=== PATIENT | female | born 1995 | race Caucasian/White ===

== ENCOUNTER 2021-04-22 13:22 | Emergency (ER) | payer OTHER, SELFPAY ==
[2021-04-22 15:00] VITALS: BP 148/83; PULSE 94; RESP 18; TEMP 36.4; O2SAT 98; BMI 46.1
--- NOTE | 2021-04-22 15:49 | ED_ITS ---
HPI - Skin/Abscess/Foreign Bdy General Chief complaint: Skin/Abscess/Foreign Body Stated complaint: pain under left breast Time Seen by Provider: 04/22/21 15:38 Source: patient Mode of arrival: ambulatory Limitations: no limitations History of Present Illness complaint: abscess/boil Onset (ago): day(s) (Two days) Location: chest (Left breast) Severity: severe Severity scale (1-10): >10 Quality: aching and constant Pain Consistency: constant Relieving factors: none Exacerbating factors: palpation Context: none Associated symptoms: denies other symptoms Treatments prior to arrival: attempted to drain pus at home Related Data Previous Rx's Medication Instructions Recorded cephalexin 500 mg capsule 500 mg PO Q6H 10 Days #40 cap 04/22/21 doxycycline monohydrate 100 mg 100 mg PO BID 10 Days #20 cap 04/22/21 capsule ibuprofen 800 mg tablet 800 mg PO Q8H PRN #14 tab 04/22/21 oxycodone-acetaminophen 5 mg-325 1 tab PO Q6H PRN #10 tab 04/22/21 mg tablet (Percocet) Allergies Allergy/AdvReac Type Severity Reaction Status Date / Time azithromycin [From ZITHROMAX] Allergy Intermediate EYE Unverified 05/20/20 16:33 SWELLING Review of Systems Review of Systems: Constitutional : No Fever, No Chills, Cardiovascular : No Chest Pain, No SOB Respiratory : No Dyspnea Gastrointestinal : No abdominal pain Musculoskeletal : No Joint Swelling Skin : positive skin abscess with mild surrounding erythema, no laceration, No Foreign bodies, No rash Neuro : No Weakness, No Numbness/tingling Psych : No SI/HI/thoughts of self injury Yes all other systems are reviewed and are negative [facility] Past Medical History Attestation statement: The following information was validated with the patient. Social History Social History Advance Directives: Yes Advance Directives Information Provided: Yes Advance Directives on File: No Patient : No Physical Exam Vital Signs: Vital Signs: Last Vital Signs Temp 97.6 F 04/22/21 15:00 Pulse 94 04/22/21 15:00 Resp 18 04/22/21 15:00 BP 148/83 H 04/22/21 15:00 Pulse Ox 98 04/22/21 15:00 Body Mass Index 46.1 vital signs have been reviewed as normal and appeared to be correct. Blood pressure normal. Heart rate normal. Respiration rate normal. Temperature normal. Oxygen saturation normal. Appearance: Alert. Oriented X3. No acute distress. Head: Normal external exam. Normocephalic. Atraumatic. Eyes: PERRLA. EOMI. Conjunctiva and sclera normal. Eyelids normal. ENT: Pharynx normal. Uvula midline. Moist mucous membranes. Neck: Normal inspection. Neck supple. FROM. No adenopathy. No meningeal signs. CVS: Normal heart rate and rhythm. Heart sound normal. Pulses normal throughout. No murmurs/rales/gallops. Respiratory: No respiratory distress. Painless inspiration. Breath sounds normal. No wheezes/rales/rhonchi noted. Chest nontender. No accessory muscle usage noted or decreased air movement noted. Back: Full range of motion noted. No rashes/lesion/induration/fluctuance or signs of infection noted. Skin: To left breast at the 07:00 o'clock aspect patient has an abscess that is already draining with moderate purulent discharge and mild surrounding erythema. No induration noted. The rest of the Skin is warm and dry. Normal skin color. Normal skin turgor. No additional rashes/lesions/lacerations noted. Extremities: Extremities exhibit normal range of motion. Extremities nontender. Neuro: Oriented X 3. No motor deficit. No sensory deficit. Reflexes normal. Normal steady gait. No focal neuro deficits noted. Course Course Course Narrative: 26-year-old female presenting to the ED with complaints of an abscess to her left breast for the past 2 days worse today with surrounding erythema. On exam patient's abscess is already draining with moderate purulent drainage. Therefore I continue to apply pressure to take all the purulent drainage and I irrigated it. No further purulent drainage is noted. Dressing placed. Patient will be discharged with antibiotics and symptomatic treatment along with instructions return if any new or worsening symptoms to follow up with primary care provider. Patient understands agrees with this plan. MDM - Skin/Abscess/Foreign Bdy Medical Records Attestation: I reviewed the patient's medical records. Procedures Abscess I/D Site: chest (Breast) Side (if applicable): left Technique: other (Manual pressure due to already draining) Amount of fluid expressed (mL): 5 Sent for culture/gram staining?: No Irrigation: Yes Packing used?: none Complications: other (No complications patient tolerated procedure well) Discharge Plan Discharge Clinical Impression: Cellulitis, Abscess of skin or subcutaneous tissue Patient Disposition: Home, Self-Care Instructions: Cellulitis (ED), Abscess (ED), Abscess Incision and Drainage (DC) Prescriptions: New cephalexin 500 mg capsule 500 mg PO Q6H 10 Days Qty: 40 RF: 0 ibuprofen 800 mg tablet 800 mg PO Q8H PRN (Reason: pain) Qty: 14 RF: 0 oxycodone-acetaminophen [Percocet] 5-325 mg tablet 1 tab PO Q6H PRN (Reason: pain) Qty: 10 RF: 0 doxycycline monohydrate 100 mg capsule 100 mg PO BID 10 Days Qty: 20 RF: 0 Referrals: Elham Tidwell MD [Primary Care Provider] - 2 days Stand Alone Forms: Work/School Release Print Language: [place] Leonean
[2021-04-22] MEDS: Ibuprofen 800 MG TABLET PO (15:57)
[2021-04-22] MEDS: cephALEXin 500 MG CAPSULE PO (15:57)
[2021-04-22] MEDS: oxyCODONE HCl Immed Release 5 MG TABLET PO (15:58)
== END 2021-04-22 16:05 | disposition home or self-care (01) ==
PROVIDERS: Emergency Provider Internal Medicine; PCP Internal Medicine
DX: L02.213 Cutaneous abscess of chest wall (principal); L03.313 Cellulitis of chest wall
CPT/HCPCS: 99283; 99284

== ENCOUNTER 2021-06-09 12:47 | Emergency (ER) | payer OTHER, SELFPAY ==
--- NOTE | ~2021-06-09 | XR_ITS ---
EXAMINATION: XR ANKLE, LEFT CLINICAL INFORMATION: Tender posterior ankle. COMPARISON: None TECHNIQUE: AP, lateral, and mortise views of the left ankle. FINDINGS: The bones and soft tissues are normal. No fracture. Alignment is anatomic. Joint spaces are maintained. No joint effusion. XR/XR ankle LT 2V IMPRESSION: Unremarkable left ankle exam.
[2021-06-09 14:39] VITALS: BP 142/85; PULSE 74; RESP 18; TEMP 36.3; O2SAT 100; BMI 44.6
--- NOTE | 2021-06-09 15:15 | ED_ITS ---
HPI - General Adult General Chief complaint: Extremity Injury, Lower Stated complaint: l foot pain no known inj Time Seen by Provider: 06/09/21 15:14 Source: patient Mode of arrival: ambulatory Limitations: no limitations History of Present Illness HPI narrative: Two days ago patient will cup with left Achillis tendon pain. She reports no injury. She reports that the area is painful to touch. No numbness no tingling. Having hard time standing up. Patient works as a ice cream server all day. Onset (ago): day(s) Location: lower extremity (Left leg Achillis tendon) Radiation: non-radiation Severity: moderate Quality: aching Pain Consistency: intermittent Relieving factors: immobilization Exacerbating factors: movement Related Data Previous Rx's Medication Instructions Recorded cephalexin 500 mg capsule 500 mg PO Q6H 10 Days #40 cap 04/22/21 doxycycline monohydrate 100 mg 100 mg PO BID 10 Days #20 cap 04/22/21 capsule ibuprofen 800 mg tablet 800 mg PO Q8H PRN #14 tab 04/22/21 oxycodone-acetaminophen 5 mg-325 1 tab PO Q6H PRN #10 tab 04/22/21 mg tablet (Percocet) cyclobenzaprine 10 mg tablet 10 mg PO BID PRN #10 tab 06/09/21 ibuprofen 600 mg tablet 600 mg PO Q8H PRN #20 tab 06/09/21 prednisone 20 mg tablet 60 mg PO DAILY 5 Days #15 tab 06/09/21 Allergies Allergy/AdvReac Type Severity Reaction Status Date / Time azithromycin [From ZITHROMAX] Allergy Intermediate EYE Verified 06/09/21 14:39 SWELLING Review of Systems Review of Systems: Constitutional : No Weight loss, No Fever, No Chills, No Night Sweats, No Fatigue, No Malaise ENT/Mouth : No Hearing loss, No Ear Pain, No Nasal Congestion, No Sinus Pain, No Hoarseness, No sore throat, No Rhinorrhea, No Swallowing Difficulty Eyes: No Eye Pain, No Swelling, No Redness, No Foreign Body, No Discharge, No Vision Changes Cardiovascular : No Chest Pain, No SOB, No Dyspnea on Exertion, No Orthopnea, No Edema, No Palpitations Respiratory : No Cough, No Sputum, No Wheezing, No Smoke Exposure, No Dyspnea Gastrointestinal : No Nausea, No Vomiting, No Diarrhea, No Constipation, No abdominal Pain, No Hematochezia, No Melena Genitourinary : no irregular bleeding, No Dysuria, No Urinary Frequency, No Hematuria, No Urinary Incontinence, No Urgency, No Flank Pain, No Urinary Flow Changes, No Hesitancy Musculoskeletal : No joint pain, No Myalgias, No Joint Swelling Skin : No Skin Lesions, No rash Neuro : No Weakness, No Numbness, No Paresthesias, No Loss of Consciousness, No Dizziness, No Headache Yes all other systems are reviewed and are negative PMFSH Past Medical History Medical History (Updated 06/09/21 @ 15:43 by Selin Hinds, [facility]) Asthma Hypoglycemia Tendinitis Social History Social History Advance Directives: No Advance Directives Information Provided: No Patient : No Physical Exam Vital Signs: Vital Signs: Last Vital Signs Temp 97.3 F 06/09/21 14:39 Pulse 74 06/09/21 14:39 Resp 18 06/09/21 14:39 BP 142/85 H 06/09/21 14:39 Pulse Ox 100 06/09/21 14:39 Body Mass Index 44.6 Const: General: healthy appearing, no acute distress and well developed Nutritional Appearance: well nourished Orientation/consciousness: patient oriented x3 Neck: Neck: Yes normal visual inspection, Yes full ROM and Yes trachea midline Thyroid: Thyroid normal Resp: Auscultation: clear to auscultation bilaterally Cardio: Rate: regular rate Rhythm: regular rhythm GI: Inspection: Yes normal to inspection and No distended Palpation (GI): No hepatosplenomegaly present Auscultation: normal bowel sounds Skin: General skin exam: elasticity normal, turgor normal and dry skin Neuro: General: patient oriented x3 Extrem: Other: Left lower extremity Achillis tendon tenderness. Felix test negative for Achilles tendon rupture Medical Decision Making MDM Narrative Medical decision making narrative: Patient woke up couple days ago with left Achillis tendon pain. Denies any injuries. Patient works as a ice cream server all day. Patient reports that she had Achillis tendon tendinitis when she was in high school when she played soccer. Felix test performed, negative for Achilles tendon rupture. Upper portion of Achillis tendon tendinitis. Will treat with prednisone and muscle relaxer Imaging Data Ankle x-ray: Attestation: I personally reviewed and interpreted this imaging study as follows: Radiologist's impression: FINDINGS: The bones and soft tissues are normal. No fracture. Alignment is anatomic. Joint spaces are maintained. No joint effusion.? Discharge Plan Discharge Clinical Impression: Achilles tendinitis Qualifiers: Laterality: left Qualified Code(s): M76.62 - Achilles tendinitis, left leg Patient Disposition: Home, Self-Care Instructions: Achilles Tendinitis (ED) Additional Instructions: You were seen here today for you left Achillis tendon pain. We performed a test and your Achillis tendon is not ruptured, however you might have head injury that resulted in inflammation. Please make sure that use where your boot that we provided to it. Make sure that you finish all of your prednisone. You can also take muscle relaxer to help with pain Prescriptions: New cyclobenzaprine 10 mg tablet 10 mg PO BID PRN (Reason: muscle spasm) Qty: 10 RF: 0 prednisone 20 mg tablet 60 mg PO DAILY 5 Days Qty: 15 RF: 0 ibuprofen 600 mg tablet 600 mg PO Q8H PRN (Reason: pain) Qty: 20 RF: 0 No Action cephalexin 500 mg capsule 500 mg PO Q6H 10 Days Qty: 40 RF: 0 ibuprofen 800 mg tablet 800 mg PO Q8H PRN (Reason: pain) Qty: 14 RF: 0 oxycodone-acetaminophen [Percocet] 5-325 mg tablet 1 tab PO Q6H PRN (Reason: pain) Qty: 10 RF: 0 doxycycline monohydrate 100 mg capsule 100 mg PO BID 10 Days Qty: 20 RF: 0 Referrals: Joshua Engle MD [Physician] - 2 days (Left foot Achillis tendon tendinitis) Elham Tidwell MD [Primary Care Provider] - 2 days Stand Alone Forms: Work/School Release Interventions: ED Discharge Assessment Last Done: 06/09/21 16:25 Discharge Date/Time: 06/09/21 16:25
[2021-06-09] MEDS: predniSONE 20 MG TABLET 60 MG PO (15:59)
[2021-06-09] MEDS: Cyclobenzaprine HCl 10 MG TABLET PO (15:59)
== END 2021-06-09 16:25 | disposition home or self-care (01) ==
PROVIDERS: Emergency Provider Emergency Medicine; PCP Internal Medicine
DX: M76.62 Achilles tendinitis, left leg (principal)
CPT/HCPCS: 73600; 99283; 99284

== ENCOUNTER 2021-11-07 14:09 | Emergency (ER) | payer SELFPAY ==
[2021-11-07 14:12] VITALS: BP 150/89; PULSE 100; RESP 19; TEMP 36.6; O2SAT 99; BMI 48.0
--- NOTE | 2021-11-07 15:10 | ED_ITS ---
HPI - Back Pain/Injury General Chief Complaint: Back Pain/Injury Stated Complaint: Back pain Time Seen by Provider: 11/07/21 14:56 Source: patient Mode of arrival: ambulatory Limitations: no limitations History of Present Illness HPI Narrative: Patient is a 26-year-old female past history significant for tendinitis and sciatica. She states that she went bowling prior to arrival to the emergency department. She was bending forward and swinging the bowling ball between her legs, and upon standing straight up she experienced sharp pain diffusely across her lower back. The pain is non radiating, is made worse with movement, improved some with rest. She did not take any medication prior to arrival. Denies any bowel or bladder dysfunction, numbness or tingling of the legs, or impaired sensation. She denies any preceding symptoms over the past few days including fevers, chills, nausea, vomiting, abdominal pain, pelvic pain, dysuria, urinary frequency/urgency/hesitancy/abnormal vaginal bleeding, abnormal vaginal discharge. She denies possibility of . Denies any recent surgical procedures, any known immune compromising conditions, personal history of cancer, or IV drug usage. Declines urinalysis or testing at this time. Related Data Previous Rx's Medication Instructions Recorded cephalexin 500 mg capsule 500 mg PO Q6H 10 Days #40 cap 04/22/21 doxycycline monohydrate 100 mg 100 mg PO BID 10 Days #20 cap 04/22/21 capsule ibuprofen 800 mg tablet 800 mg PO Q8H PRN #14 tab 04/22/21 oxycodone-acetaminophen 5 mg-325 1 tab PO Q6H PRN #10 tab 04/22/21 mg tablet (Percocet) cyclobenzaprine 10 mg tablet 10 mg PO BID PRN #10 tab 06/09/21 ibuprofen 600 mg tablet 600 mg PO Q8H PRN #20 tab 06/09/21 prednisone 20 mg tablet 60 mg PO DAILY 5 Days #15 tab 06/09/21 naproxen 500 mg tablet 500 mg PO BID PRN #14 tab 11/07/21 Allergies Allergy/AdvReac Type Severity Reaction Status Date / Time azithromycin [From ZITHROMAX] Allergy Intermediate EYE Verified 06/09/21 14:39 SWELLING Review of Systems Review of Systems: Constitutional : No Weight loss, No Fever, No Chills, ENT/Mouth : No Hearing loss, No Ear Pain, No Nasal Congestion, No Sinus Pain, No Hoarseness, No sore throat, No Rhinorrhea, No Swallowing Difficulty Cardiovascular : No Chest Pain, No SOB Respiratory : No Cough, No Dyspnea Gastrointestinal : No Nausea, No Vomiting, No Diarrhea, No abdominal Pain, No Hematochezia, No Melena Genitourinary : No Dysuria, No Urinary Frequency, No Hematuria, No Urinary Incontinence Musculoskeletal : positive back pain Skin : No Skin Lesions, No rash Neuro : No Weakness, No Numbness, No Paresthesias, no loss of bowel or bladder incontinence, no saddle anesthesia Yes all other systems are reviewed and are negative [facility] Past Medical History Attestation statement: The following information was validated with the patient. Source: old records reviewed Medical History Asthma Bipolar 1 disorder Depression Hypoglycemia PTSD (post-traumatic stress disorder) Tendinitis Social History Social History Advance Directives: No Advance Directives Information Provided: No Patient : No Physical Exam Vital Signs: Vital Signs: Last Vital Signs Temp 98 F 11/07/21 14:12 Pulse 100 11/07/21 14:12 Resp 19 11/07/21 14:12 BP 150/89 H 11/07/21 14:12 Pulse Ox 99 11/07/21 14:12 BMI result Body Mass Index 48.0 Vital signs have been reviewed as normal and appeared to be correct. Blood pressure slightly elevated 150/89. Heart rate normal.? Respiration rate normal. Temperature normal.? Oxygen saturation normal. Appearance: Alert.?Oriented to person, place and time. No acute distress.?Normal affect. Eyes: Pupils equal, round and reactive to light.? ENT: Pharynx normal.?? Neck: Normal inspection.? Neck supple.?? CVS: Heart sounds normal. Normal heart rate and rhythm.? Pulses normal.?? Respiratory: No respiratory distress.? Lung sounds clear to auscultation bilaterally?? Abdomen: Soft and non-tender. Normoactive bowel sounds. No pulsatile mass.?? Skin: Skin warm and dry.? Normal skin color.? Normal skin turgor.?? Extremities: No lower extremity edema.? No calf ttp? Back: Tenderness with palpation of the bilateral paraspinal muscles. Neuro: Moves all extremities spontaneously. Sensation intact bilaterally. CN II- XII intact. No focal neuro deficits. Ambulates with slow steady gait. Course Course Course Narrative: Patient is a 26-year-old female being evaluated for acute lumbar pain. She has a history of sciatica for which she reports muscle relaxers have never helped, she is not interested in taking muscle relaxers. Pain is most consistent with muscular pain, although cannot completely exclude herniated disc. On neurological exam there are no deficits. Not consistent with spinal fracture, spinal infection, epidural abscess, AAA, epidural abscess, or dissection. No high risk past medical history including incontinence, fever, immunosuppression, recent surgery or lumbar puncture, coagulopathy, significant trauma, recent unintentional weight loss, pulsatile mass, history of cancer, history of TB, history of IV drug use that would warrant MRI or CT. Not consistent with ectopic , pyelonephritis, urinary tract infection, renal calculi, pelvic infection, appendicitis, diverticulitis. On exam no concern for cauda equina syndrome. No imaging is currently indicated at this time. Plan for discharge home with naproxen, and follow-up with primary care provider, discussed reasons to return to the emergency department, and patient agreed with plan. Discharge Plan Discharge Clinical Impression: Strain of lumbar region Patient Disposition: Home, Self-Care Instructions: Acute Low Back Pain (ED), Lower Back Exercises (ED) Additional Instructions: Please be sure to rest over the next couple of days, you can apply ice packs or heating pad to your lower back. You can use Tylenol [id number] as needed, you had been given a prescription for naproxen which can be used twice daily, do not take ibuprofen, Aleve, aspirin or any additional [id number] anti- inflammatories with this medication. Please engage in lower back exercises. Please contact your primary care provider and schedule a follow-up appointment within 5 days. You can return to the emergency department for any new or worsening symptoms or concerns Prescriptions: New naproxen 500 mg tablet 500 mg PO BID PRN (Reason: pain) Qty: 14 0RF No Action cephalexin 500 mg capsule 500 mg PO Q6H 10 Days Qty: 40 0RF ibuprofen 800 mg tablet 800 mg PO Q8H PRN (Reason: pain) Qty: 14 0RF oxycodone-acetaminophen [Percocet] 5-325 mg tablet 1 tab PO Q6H PRN (Reason: pain) Qty: 10 0RF doxycycline monohydrate 100 mg capsule 100 mg PO BID 10 Days Qty: 20 0RF cyclobenzaprine 10 mg tablet 10 mg PO BID PRN (Reason: muscle spasm) Qty: 10 0RF prednisone 20 mg tablet 60 mg PO DAILY 5 Days Qty: 15 0RF ibuprofen 600 mg tablet 600 mg PO Q8H PRN (Reason: pain) Qty: 20 0RF Stand Alone Forms: Work/School Release Interventions: ED Discharge Assessment Last Done: 11/07/21 15:20 Discharge Date/Time: 11/07/21 15:22
== END 2021-11-07 15:22 | disposition home or self-care (01) ==
PROVIDERS: Emergency Provider Emergency Medicine; PCP Internal Medicine
DX: S39.012A Strain of muscle, fascia and tendon of lower back, initial encounter (principal); X50.1XXA Overexertion from prolonged static or awkward postures, initial encounter; Y93.54 Activity, bowling; Y92.39 Other specified sports and athletic area as the place of occurrence of the external cause; Y99.9 Unspecified external cause status
CPT/HCPCS: 99283

== ENCOUNTER → 2023-11-01 09:37 | Outpatient (BNV) | payer OTHER, SELFPAY ==
--- NOTE | 2023-11-01 09:37 | MHC.OFFVIS ---
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 she has no known injury - regular activity of student. carrying backpack, typing etc. it hurts to move and to push on it. she wants a wrap or something supportive.so she can be in class and typing as needed. feels that she has a lot of chronic pain and all people do is complain or focus on her weight. she feels that;s not always very helpful. she had shoulder pain and was given muscle relaxants but cant take them during the day. she was told to get massages but cant afford....thumb pain is mild/moderate will likely resolve in time, given peter wrap and wrapped the wrist etc - suggested that she might need wrist support if doing a lot of typing. support and teaching [facility] Medical History Bipolar 1 disorder PTSD (post-traumatic stress disorder) Depression Tendinitis Hypoglycemia Asthma Social History Advance Directives: No Advance Directives Information Provided: No Patient : No Review of Systems Const Details: Counseling visit: All systems reviewed & are unremarkable except as noted in HPI and below Reports as per HPI Resp Reports as per HPI GI Reports as per HPI Musc Reports as per HPI Neuro Reports as per HPI Psych Reports as per HPI Physical Exam Const General: cooperative, healthy appearing and no acute distress Nutritional Appearance: well nourished Orientation/consciousness: oriented to person Limitations: no limitations HEENT Other: wnl Eyes Other: wnl Chest Other: easy breathing Resp Effort & Inspection: able to speak in complete sentences Skin Other: normal in appearance Neuro General: oriented to person Extrem Other: left thumb - appearance is normal, no brusing redness etc. movement is full and normal but causes her minor distress. movement pain w. resistance laterally not pulling in, minor pain to palp -peter wrapped Psych Other: see HPI Mental Status: mental status grossly normal Speech and movement: Clear speech present Attitude: cooperative Thought process: Normal thought process present Assessment & Plan Assessment & Plan (1) Left thumb sprain: Code(s): S63.602A - Unspecified sprain of left thumb, initial encounter Plan: peter wrap and teaching done, and support given. suggested getting a pcp active again. states health insurance active - i just called to check on this and she has no insurance.... Coding Level of Care Code New Pt Level 2 (40022) Diagnoses Left thumb sprain S63.602A
== END ==
PROVIDERS: PCP Internal Medicine; Visit Provider Nurse Practitioner Family
DX: S63.602A Unspecified sprain of left thumb, initial encounter (principal)
CPT/HCPCS: 99202

== ENCOUNTER 2023-11-28 21:12 | Emergency (ER) | payer OTHER, SELFPAY ==
--- NOTE | ~2023-11-28 | US_ITS ---
EXAMINATION: US ABDOMEN LIMITED CLINICAL INFORMATION: Abnormal appearance of the liver and right kidney on CT scan obtained earlier the same day. COMPARISON: CT scan of the abdomen and pelvis obtained earlier the same day. TECHNIQUE: Real-time imaging of the liver and right kidney, as per specific request of the referring provider. FINDINGS: PANCREAS: Normal. LIVER: The echogenic diffusely. Measures 22.5 cm in sagittal dimension. The liver contour appears unremarkable. No focal hepatic lesion appreciated. No intrahepatic biliary duct dilatation is seen. GALLBLADDER: Status post cholecystectomy. COMMON BILE DUCT: Not evaluated. RIGHT KIDNEY: Lobular contour of the upper pole of the right kidney. No hydronephrosis. No renal calculi or focal parenchymal lesion identified. The kidney measures 12.1 cm in maximum dimension. FREE FLUID: None. US/US abdomen limited IMPRESSION: Lobular contour of the upper pole the right kidney, possibly representing scarring related to old pyelonephritis and/or old infarct. Mild hepatomegaly. Fatty infiltration of the liver. Status post cholecystectomy.
--- NOTE | ~2023-11-28 | CT_ITS ---
EXAMINATION: CT ABDOMEN AND PELVIS WITHOUT CONTRAST CLINICAL INFORMATION: 28-year-old female with abdominal pain, nausea, midline incisional hernia COMPARISON: 04/07/2019 TECHNIQUE: Multidetector volumetric imaging was performed from the superior aspect of the liver through the pubic symphysis. Sagittal and coronal reformatted images were obtained on the technologist's workstation. This CT examination was performed using dose optimization techniques as appropriate, variously including the following: *Automated exposure control *Adjustment of mA and/or kV according to patient size (this includes techniques or standardized protocols for targeted exams where dose is matched to indication/reason for exam; i.e. extremities or head) *Use of iterative reconstruction technique DLP: 991 mGy-cm FINDINGS: LUNG BASES: The visualized lung bases are unremarkable. LIVER, GALLBLADDER, AND BILIARY TREE: Liver is of very low attenuation due to hepatic steatosis, enlarged, the right lobe measured approximately 23 cm.. Gallbladder is surgically absent. PANCREAS: Unremarkable. SPLEEN: Unremarkable. ADRENAL GLANDS: Unremarkable. KIDNEYS AND URETERS: Left kidney is normal in size, shape, and attenuation. Right kidney revealed irregularity of the upper pole limited for evaluation due to noncontrast technique, possibly scarring. No hydronephrosis, hydroureter, or calculi seen. No perinephric stranding. BLADDER: Unremarkable. GASTROINTESTINAL TRACT: The small and large bowel are unremarkable. The appendix is not seen. ABDOMINAL WALL: No significant hernia is appreciated. LYMPH NODES: Normal. VASCULAR: Unremarkable. PELVIC VISCERA: Unremarkable. OSSEOUS STRUCTURES: Unremarkable. CT/CT abdomen pelvis wo IV con IMPRESSION: Hepatomegaly and hepatic steatosis. Irregularity of the upper pole of right kidney, correlate with renal ultrasound Fleischner guidelines were followed.
[2023-11-28 21:34] VITALS: BP 158/89; PULSE 91; RESP 16; TEMP 36.8; O2SAT 98; BMI 45.8
[2023-11-28 22:07] LABS: Appearance Urine Cloudy; Color Urine Yellow; Glucose Urine UA 250 mg/dL (Negative); Leukocyte Esterase Urine Small (1+) (Negative); Nitrite Urine Negative (Negative); PH 5.5 (5.0-9.0); Specific Gravity - Urine >= 1.030 (1.005-1.025); UMIC TRIGGER UACC YES; Urine Blood Negative (Negative); Urine Ketones Trace mg/dL (Negative); Urine Protein 30 (1+) mg/dL (Neg-Trace)
[2023-11-28 22:10] LABS: UPreg QC Valid YES; Urine Pregnancy NEGATIVE (NEGATIVE)
[2023-11-28 22:23] LABS: Bacteria Urine 4+ (None Seen); Hyaline Casts Urine 0-2 /LPF (0-2); RBC Urine 0-2 /HPF (0-2); UACC Culture Trigger YES; WBC Urine >50 /HPF (0-5)
--- NOTE | 2023-11-28 23:57 | PC.NURSE ---
pt not in waiting room for reeval. registration states she has been in and out.
[2023-11-29 00:04] VITALS: BP 155/100; PULSE 89; RESP 16; TEMP 36.9; O2SAT 100
[2023-11-29 07:10] LABS: MANUAL DIFF FLAG NO
[2023-11-29 07:11] LABS: Basophils Absolute Auto 0.1 X10*3/uL (0.0-0.2); Basophils Percent Auto 0.4 % (0-2); Eosinophils Absolute Auto 0.4 X10*3/uL (0.0-0.4); Eosinophils Percent Auto 3.2 % (0-4); Hematocrit 36.9 % (37.0-47.0); Hemoglobin 12.3 g/dl (12.0-16.0); Imm Gran Abs Auto 0.05 X10*3/uL (0.00-0.03); Imm Gran Pct Auto 0.4 % (0.0-0.4); Lymphocytes Absolute Auto 4.3 X10*3/uL (1.2-4.9); Lymphocytes Percent Auto 35.4 % (20-40); Mean Corpuscular HGB Conc 33.3 g/dl (31.0-35.0); Mean Corpuscular Hemoglobin 29.8 pg (27.0-33.0); Mean Corpuscular Volume 89.3 fL (80.0-98.0); Mean Platelet Volume 9.5 fL (9.4-12.3); Monocytes Absolute Auto 0.6 X10*3/uL (0.1-1.2); Monocytes Percent Auto 4.9 % (2-11); Neutrophils Absolute Auto 6.7 x10*3/uL (2.0-8.3); Neutrophils Percent Auto 55.7 % (45-73); Platelet Count 298 X10*3/uL (160-400); Red Blood Count 4.13 X10*6/uL (4.20-5.50); Red Cell Distribution Width 14.6 % (11.0-16.0)
[2023-11-29 07:30] LABS: Alanine Aminotransferase 31 U/L (0-31); Albumin Level 3.9 g/dL (3.5-5.0); Alkaline Phosphatase 85 U/L (39-117); Anion Gap 12 (12-20); Aspartate Amino Transferase 19 U/L (5-31); Bilirubin Total 0.3 mg/dL (0.0-1.0); Blood Urea Nitrogen 15 mg/dL (9-16); Calcium 9.5 mg/dL (8.4-10.2); Carbon Dioxide 26 mmol/L (22-29); Chloride 103 mmol/L (96-108); Estimated Glomerular Filt Rate > 60; Glucose Random 252 mg/dL (60-115); Sodium 137 mmol/L (135-145); Total Protein 7.5 g/dL (6.5-8.0)
--- NOTE | 2023-11-29 07:40 | ED.ABDPAIN ---
HPI - Abdominal Pain General Chief Complaint: Abdominal Pain Stated Complaint: possible abd hernias Time Seen by Provider: 11/29/23 07:32 Source: patient Mode of arrival: ambulatory Limitations: no limitations History of Present Illness HPI narrative: 28-year-old female came in for evaluation of abdominal pain. Abdominal pain for few days that is more severe now, mostly in mid abdomen above the umbilical, patient been having abdominal bulging when she tried to set up was told by her PCP it is hernia now it is more predominant especially when she tries to sit up, the abdominal pain is associated with nausea but no vomiting, patient reports normal bowel movements with no blood or black stool, no vomiting, no fever. Patient declined dysuria, frequency urination, or blood in the urine. Sexually active with 1 partner no vaginal bleed or vaginal discharge patient also declined any risk for STDs. Past surgical history significant for laparoscopic cholecystectomy. Related Data Previous Rx's Medication Instructions Recorded cephalexin 500 mg capsule 500 mg PO Q6H 10 days #40 caps 04/22/21 doxycycline monohydrate 100 mg 100 mg PO BID 10 days #20 caps 04/22/21 capsule ibuprofen 800 mg tablet 800 mg PO Q8H PRN pain #14 tabs 04/22/21 oxycodone-acetaminophen 5 mg-325 1 tab PO Q6H PRN pain #10 tabs 04/22/21 mg tablet (Percocet) cyclobenzaprine 10 mg tablet 10 mg PO BID PRN muscle spasm #10 06/09/21 tabs ibuprofen 600 mg tablet 600 mg PO Q8H PRN pain #20 tabs 06/09/21 prednisone 20 mg tablet 60 mg (3 x 20 mg) PO DAILY 5 days 06/09/21 #15 tabs naproxen 500 mg tablet 500 mg PO BID PRN pain #14 tabs 11/07/21 cefuroxime axetil 500 mg tablet 500 mg PO BID 7 days #14 tabs 11/29/23 Allergies Allergy/AdvReac Type Severity Reaction Status Date / Time azithromycin [From ZITHROMAX] Allergy Intermediate EYE Verified 06/09/21 14:39 SWELLING Review of Systems Review of Systems All other systems are reviewed and are negative Constitutional: Reports as per HPI and Reports no additional constitutional complaints Eyes: Reports as per HPI and Reports no additional eye complaints Reports system reviewed and no additional complaints, except as documented Cardiovascular: Reports as per HPI and Reports no additional cardiovascular complaints Respiratory: Reports as per HPI and Reports no additional respiratory complaints Gastrointestinal: Reports as per HPI and Reports no additional gastrointestinal complaints Genitourinary: Reports no additional female genitourinary complaints Musculoskeletal: Reports no additional musculoskeletal complaints Skin/Breast: Reports system reviewed and no additional complaints, except as docu Psychiatric: Reports no additional psychiatric complaints Endocrine: Reports no additional endocrine complaints Hematologic/Lymphatic: Reports no additional hematologic/lymphatic complaints Allergic/Immunologic: Reports no additional allergic/immunologic complaints Reports system reviewed and no additional complaints, except as documented and Reports Abnormal speech present [facility] Past Medical History Medical History Bipolar 1 disorder PTSD (post-traumatic stress disorder) Depression Tendinitis Hypoglycemia Asthma Social History Social History Smoked in Last 30 Days: Yes Use of substances other than those prescribed or required for medical reasons: Yes Substance Use Type: Marijuana Substance Use Frequency: Occasionally Advance Directives: No Advance Directives Information Provided: No Physical Exam ED Vital Signs: Vital Signs - 24 hr 11/28/23 21:34 11/29/23 00:04 11/29/23 08:28 Temperature 98.3 F 98.5 F 97.8 F Pulse Rate 91 89 72 Respiratory Rate 16 16 18 Blood Pressure 158/89 H 155/100 H 151/87 H Pulse Oximetry 98 100 99 Oxygen Delivery Method Room Air Room Air Room Air BMI result Body Mass Index 45.8 Vital signs have been reviewed and appear to be correct. Blood pressure elevated. Heart rate normal. Respiratory rate normal. Temperature normal. Oxygen saturation normal. Appearance: Alert. Oriented X3. No acute distress. Head: Normal external exam. Normocephalic. Atraumatic. No Bartlett signs noted. No raccoon eyes noted Eyes: PERRLA. EOMI. Conjunctiva and sclera normal. Eyelids normal. ENT: TM's Normal. Pharynx normal. Uvula midline. Moist mucous membranes. No trismus noted. No drooling noted. No muffled voice noted. Neck: Normal inspection. Neck supple. FROM. No adenopathy. Thyroid Normal. No meningeal signs. No neck mass noted. CVS: Normal heart rate and rhythm. Heart sound normal. No murmurs noted. Pulses normal throughout. Respiratory: No respiratory distress. Painless inspiration. Breath sounds normal. No wheezes/rales/rhonchi noted. Chest nontender. No accessory muscle usage noted or decreased air movement noted. Abdomen: Soft , obese and nontender, hernia is not appreciated on the physical exam due to obesity, Bowel sounds normal in all 4 quadrants. No distention noted. No organomegaly noted. No visible injury noted. Back: No CVA tenderness. Full range of motion noted. Skin: Skin warm and dry. Normal skin color. Normal skin turgor. No rashes/lesions/lacerations noted. Extremities: No lower extremity edema. Extremities exhibit normal range of motion. Extremities nontender. Neuro: Oriented X 3. Cranial nerve exam: II-XII are grossly intact No motor deficit. No sensory deficit. Reflexes normal. Course Reevaluation(s) Reevaluation #1: 28-year-old female came in with a concern of hernia every time she sits up, physical exam was limited due to obesity of the abdomen CT of the abdomen pelvis shows no abdominal wall hernia. Because concern of hepatic steatosis and right kidney upper pole irregularity patient had abdominal ultrasound which showed fatty liver and possible scarring in the right kidney from old infection. Patient has no dysuria or frequency urination however UA is revealing a UTI will start the patient on Ceftin and was encouraged to drink plenty of fluids. Patient was encouraged to consult our weight management program. Time: 11:35 Medical Decision Making Differential Diagnosis Differential Diagnoses: The differential diagnosis associated with the presentation includes ( UTI, , colitis, diverticulitis, appendicitis, pancreatitis, complicated hernia, electrolyte derangement, severe anemia , pyelonephritis, obstructive kidney stone, fatty liver.) Admission/Observation Consideration of admission/observation: Escalation of care including admission/observation considered Lab Data MDM Lab Attestation statement: I reviewed the patient's lab results. 11/29/23 07:03 11/29/23 07:03 Labs: Lab Results 11/28/23 11/29/23 Range/Units 21:58 07:03 WBC 12.0 H (4.8-10.8) X10*3/uL RBC 4.13 L (4.20-5.50) X10*6/uL Hgb 12.3 (12.0-16.0) g/dl Hct 36.9 L (37.0-47.0) % MCV 89.3 (80.0-98.0) fL MCH 29.8 (27.0-33.0) pg MCHC 33.3 (31.0-35.0) g/dl RDW 14.6 (11.0-16.0) % Plt Count 298 (160-400) X10*3/uL MPV 9.5 (9.4-12.3) fL Immature Gran % (Auto) 0.4 (0.0-0.4) % Neut % (Auto) 55.7 (45-73) % Lymph % (Auto) 35.4 (20-40) % [place] % (Auto) 4.9 (2-11) % Eos % (Auto) 3.2 (0-4) % Baso % (Auto) 0.4 (0-2) % Lymph # (Auto) 4.3 (1.2-4.9) X10*3/uL [place] # (Auto) 0.6 (0.1-1.2) X10*3/uL Eos # (Auto) 0.4 (0.0-0.4) X10*3/uL Baso # (Auto) 0.1 (0.0-0.2) X10*3/uL Abs Immat Gran (auto) 0.05 H (0.00-0.03) X10*3/uL Absolute Neuts (auto) 6.7 (2.0-8.3) x10*3/uL Absolute Nucleated RBC 0.000 (0.0-0.012) X10*3/uL Nucleated RBC % (auto) 0.0 (0.0-0.2) /100WBC Sodium 137 (135-145) mmol/L Potassium 4.0 (3.3-5.1) mmol/L Chloride 103 (96-108) mmol/L Carbon Dioxide 26 (22-29) mmol/L Anion Gap 12 (12-20) BUN 15 (9-16) mg/dL Creatinine 0.80 (0.5-1.4) mg/dL Estim Creat Clear Calc 133.0 Estimated GFR > 60 Random Glucose 252 H (60-115) mg/dL Calcium 9.5 (8.4-10.2) mg/dL Total Bilirubin 0.3 (0.0-1.0) mg/dL AST 19 (5-31) U/L ALT 31 (0-31) U/L Alkaline Phosphatase 85 (39-117) U/L Total Protein 7.5 (6.5-8.0) g/dL Albumin 3.9 (3.5-5.0) g/dL Urine Color Yellow Urine Appearance Cloudy Urine pH 5.5 (5.0-9.0) Ur Specific [place] >= 1.030 H (1.005-1.025) Urine Protein 30 (1+) H (Neg-Trace) mg/dL Urine Glucose (UA) 250 H (Negative) mg/dL Urine Ketones Trace (Negative) mg/dL Urine Blood Negative (Negative) Urine Nitrite Negative (Negative) Ur Leukocyte Esterase Small (1+) H (Negative) Urine RBC 0-2 (0-2) /HPF Urine WBC >50 H (0-5) /HPF Ur Squamous Epith Cells 11-20 (0-2) /HPF Urine Bacteria 4+ (None Seen) Hyaline Casts 0-2 (0-2) /LPF Urine Test NEGATIVE (NEGATIVE) Independent Interpretation I performed an independent interpretation of an: CT Scan Medications Administered Discontinued Medications Generic Name Dose Route Start Last Admin Trade Name Freq PRN Reason Stop Dose Admin Cefuroxime Axetil 500 mg 11/29/23 07:37 11/29/23 08:29 Cefuroxime Axetil 500 Mg Tablet PO 11/29/23 07:38 500 mg ONCE ONE Administration Discharge Plan Discharge Clinical Impression: Abdominal pain, UTI (urinary tract infection), Fatty liver Patient Disposition: Home, Self-Care Instructions: Urinary Tract Infection in Women (DC), Abdominal Pain (ED) Prescriptions: New cefuroxime axetil 500 mg tablet 500 mg PO BID 7 Days Qty: 14 0RF No Action cephalexin 500 mg capsule 500 mg PO Q6H 10 Days Qty: 40 0RF ibuprofen 800 mg tablet 800 mg PO Q8H PRN (Reason: pain) Qty: 14 0RF oxycodone-acetaminophen [Percocet] 5-325 mg tablet 1 tab PO Q6H PRN (Reason: pain) Qty: 10 0RF doxycycline monohydrate 100 mg capsule 100 mg PO BID 10 Days Qty: 20 0RF cyclobenzaprine 10 mg tablet 10 mg PO BID PRN (Reason: muscle spasm) Qty: 10 0RF prednisone 20 mg tablet 60 mg PO DAILY 5 Days Qty: 15 0RF ibuprofen 600 mg tablet 600 mg PO Q8H PRN (Reason: pain) Qty: 20 0RF naproxen 500 mg tablet 500 mg PO BID PRN (Reason: pain) Qty: 14 0RF Referrals: Elham Tidwell MD [Primary Care Provider] - Chico Orozco MD [Physician] -
[2023-11-29 08:28] VITALS: BP 151/87; PULSE 72; RESP 18; TEMP 36.6; O2SAT 99
[2023-11-29] MEDS: cefuroxime axetiL 500 MG TABLET PO (08:29)
--- NOTE | 2023-11-29 08:31 | PC.NURSE ---
pt is alert and oriented, skin appropriate for ethnicity, respirations even and unlabored, ls clear, pt reports having mid abd pain and nausea x2 days, abd soft and non-tender, vs stable
[2023-11-29 11:51] VITALS: BP 160/89; PULSE 88; RESP 16; TEMP 37; O2SAT 98
== END 2023-11-29 11:52 | disposition home or self-care (01) ==
PROVIDERS: Emergency Provider Emergency Medicine; PCP Internal Medicine
DX: R10.9 Unspecified abdominal pain (principal); N39.0 Urinary tract infection, site not specified; K76.0 Fatty (change of) liver, not elsewhere classified; E66.9 Obesity, unspecified; Z90.49 Acquired absence of other specified parts of digestive tract
CPT/HCPCS: 36415; 74176; 76705; 80053; 81001; 81025; 85025; 87086; 99284

== ENCOUNTER → 2024-01-17 23:59 | Outpatient (BNV) | payer OTHER, SELFPAY ==
--- NOTE | 2024-01-22 10:39 | A.OFFVIS_ITS ---
Intake Visit Reasons: possible abd hernias Allergies azithromycin [From ZITHROMAX] Allergy (Intermediate, Verified 06/09/21 14:39) EYE SWELLING HPI HPI possible abd hernias: Details: this is not what she was coming in for - HPI Comments Details: phone call visit w. counselor and myself. student had unprotected sex and wants emergency contraception . no risk factors. used before and had no problems. matias coreasers involved in coordinating her care she will help her get to pharmacy. [facility] Medical History Bipolar 1 disorder PTSD (post-traumatic stress disorder) Depression Tendinitis Hypoglycemia Asthma Social History Smoked in Last 30 Days: Yes Use of substances other than those prescribed or required for medical reasons: Yes Substance Use Type: Marijuana Substance Use Frequency: Occasionally Advance Directives: No Advance Directives Information Provided: No Female Reproductive History Menstrual control method: none Review of Systems Const Details: Counseling visit: All systems reviewed & are unremarkable except as noted in HPI and below Reports as per HPI Resp Reports as per HPI GI Reports as per HPI Musc Reports as per HPI Neuro Reports as per HPI Psych Reports as per HPI Physical Exam Const General: cooperative and no acute distress Orientation/consciousness: oriented to person, oriented to place and oriented to time Limitations: no limitations HEENT Other: wnl Chest Other: easy breathing Resp Effort & Inspection: able to speak in complete sentences Neuro General: oriented to person, oriented to place and oriented to time Cognition (Neuro): normal cognition Psych Other: see HPI Mental Status: mental status grossly normal Speech and movement: Clear speech present Attitude: cooperative Thought process: Normal thought process present Insight: Good insight present (Psych) Judgement: Good judgement present (Psych) Assessment & Plan Assessment & Plan (1) Unprotected sex: Code(s): Z72.51 - High risk heterosexual behavior Category: Social Hx (2) control counseling: Code(s): Z30.09 - Encounter for other general counseling and advice on contraception Category: Medical Plan plan b was [facility] wt 6 refills and instructions given to student - able to repeat back instructions Coding Level of Care Code Tele Est Pt Level 2 (06585) Diagnoses Unprotected sex Z72.51 control counseling Z30.09 Time Spent (min) 20 Comment counseling and coord care
== END ==
PROVIDERS: PCP Internal Medicine; Visit Provider Nurse Practitioner Family
DX: Z72.51 High risk heterosexual behavior (principal); Z30.09 Encounter for other general counseling and advice on contraception
CPT/HCPCS: 99212

== ENCOUNTER → 2024-05-20 09:51 | Outpatient (BNV) | payer OTHER, SELFPAY ==
--- NOTE | 2024-05-20 09:51 | A.OFFVIS_ITS ---
Intake Visit Reasons: Amb Documentation Allergies azithromycin [From ZITHROMAX] Allergy (Intermediate, Verified 06/09/21 14:39) EYE SWELLING HPI Comments Details: feels - though period not late, nausea, tender breasts, and food tastes funny. did home test and was faint line she states that last had unprotected sex on the 2nd and 3rd of this month (may) and had some spotting on the . LMP was april 24 - normal no control other than plan b used occasionally no condoms used this last time and no plan b. she would prefer NOT to be and doesn't believe in for herself. has a 5 year old and an 8 year old. and she would keep if she is . urine is negative here and she is interested in going for blood test. COUNTS INCLUDE 234 BEDS AT THE [facility] Medical History Bipolar 1 disorder PTSD (post-traumatic stress disorder) Depression Tendinitis Hypoglycemia Asthma Social History Smoked in Last 30 Days: Yes Use of substances other than those prescribed or required for medical reasons: Yes Substance Use Type: Marijuana Substance Use Frequency: Occasionally Advance Directives: No Advance Directives Information Provided: No Review of Systems Const Details: Counseling visit: All systems reviewed & are unremarkable except as noted in HPI and below Reports as per HPI Resp Reports as per HPI GI Reports as per HPI Musc Reports as per HPI Neuro Reports as per HPI Psych Reports as per HPI Physical Exam Const General: cooperative, healthy appearing and no acute distress Nutritional Appearance: well nourished Orientation/consciousness: oriented to person Limitations: no limitations HEENT Other: wnl Eyes Other: wnl Chest Other: easy breathing Resp Effort & Inspection: able to speak in complete sentences Skin Other: normal in appearance Neuro General: oriented to person Psych Other: see HPI Mental Status: mental status grossly normal Speech and movement: Clear speech present Attitude: cooperative Thought process: Normal thought process present Assessment & Plan Assessment & Plan (1) control counseling: Code(s): Z30.09 - Encounter for other general counseling and advice on contraception Category: Medical (2) Unprotected sex: Code(s): Z72.51 - High risk heterosexual behavior Category: Social Hx (3) Irregular menses: Code(s): N92.6 - Irregular menstruation, unspecified Category: Medical (4) Nausea: Code(s): R11.0 - Nausea Category: Medical Plan control counseling and order of [facility] [place] to confirm the neg (since faint positive seen on at home test) and significant symptom. she will return tomorrow for results Orders: Orders AMB HCG Urine Test Today N92.6 - Irregular menstruation, unspecified, Z32.02 - Encounter for test, result negative HCG Quantitative Today N92.6 - Irregular menstruation, unspecified, R11.0 - Nausea Coding Level of Care Code Est Pt Level 3 (46861) Diagnoses control counseling Z30.09 Unprotected sex Z72.51 Irregular menses N92.6 Nausea R11.0 Time Spent (min) 20 Comment counseling
== END ==
PROVIDERS: PCP Internal Medicine; Visit Provider Nurse Practitioner Family
DX: Z30.09 Encounter for other general counseling and advice on contraception (principal); Z72.51 High risk heterosexual behavior; N92.6 Irregular menstruation, unspecified; R11.0 Nausea
CPT/HCPCS: 99213

== ENCOUNTER 2024-05-20 12:52 | Outpatient (REF) | payer OTHER, SELFPAY ==
[2024-05-20 14:37] LABS: HCG Quantitative < 2 mIU/mL
== END 2024-05-20 12:53 | disposition home or self-care (01) ==
LOC: HO.LAB 12:52
PROVIDERS: PCP Internal Medicine; Visit Provider Nurse Practitioner Family
DX: N92.6 Irregular menstruation, unspecified (principal); R11.0 Nausea
CPT/HCPCS: 36415; 84702

== ENCOUNTER → 2024-05-27 10:39 | Outpatient (BNV) | payer OTHER, SELFPAY ==
--- NOTE | 2024-05-27 10:39 | A.OFFVIS_ITS ---
Intake Visit Reasons: Amb Documentation Allergies azithromycin [From ZITHROMAX] Allergy (Intermediate, Verified 06/09/21 14:39) EYE SWELLING HPI Comments Details: student fell at work on sunday - sunday went to urgent care and was told likely just bruise (they examined my knee but didn't really do anything) but she's still having a lot of trouble. after chatting further she was actually given a brace and orders for xray and never got this done. (no car, no money for uber) has no known pcp. previkiraaudrey was assigned to elva haines but only saw another provider and felt that she was only concerned about and atributed evetything to her weight. her right knee is swollen compared to leftnot visibly bruised but swollen w/ knee brace on she is limping down stairs and moving slowly. ok'd my talking to lali elisabet. consultation - i will give her a note for one day off work - (she wanted a few - without proper follow up and this doesn't seem like good care so i will excuse her for the day so she can get the care that she needs) and [place] client support consultant will help her get xrays and follow up that she needs including a note about work abilities [facility] Medical History Bipolar 1 disorder PTSD (post-traumatic stress disorder) Depression Tendinitis Hypoglycemia Asthma Social History Substance Use Type: Marijuana Review of Systems Const All systems reviewed & are unremarkable except as noted in HPI and below Physical Exam Const General: healthy appearing and in distress (only when walking otherwise appears well) mild Nutritional Appearance: average body habitus Resp Effort & Inspection: normal respiratory effort and able to speak in complete sentences Skin Other: normal color and turgor Extrem Other: right knee swollen not visibly bruised - grimaces w. pain when touching patella. needs xrays Assessment & Plan Assessment & Plan (1) Right knee injury: Code(s): S89.91XA - Unspecified injury of right lower leg, initial encounter Category: Medical (2) Counseling and coordination of care: Code(s): Z71.89 - Other specified counseling Category: Medical Plan i have given her a note for the day off work today - [place] supports will get her to xrays and work on getting her pcp/follow up Coding Level of Care Code Est Pt Level 3 (43589) Diagnoses Right knee injury S89.91XA Counseling and coordination of care Z71.89 Time Spent (min) 25 Comment including coord of care and establishment plan w/ client and supports and documentation
== END ==
PROVIDERS: PCP Internal Medicine; Visit Provider Nurse Practitioner Family
DX: S89.91XA Unspecified injury of right lower leg, initial encounter (principal); Z04.2 Encounter for examination and observation following work accident
CPT/HCPCS: 99213

== ENCOUNTER → 2024-06-23 10:20 | Outpatient (BNVA) | payer OTHER, SELFPAY | PROVIDERS: PCP Internal Medicine; Visit Provider Physician Assistant Surgical ==

== ENCOUNTER → 2024-07-03 10:46 | Outpatient (BNV) | payer OTHER, SELFPAY ==
--- NOTE | 2024-07-03 10:46 | MHC.OFFVIS ---
Intake Visit Reasons: Amb Documentation Allergies azithromycin [From ZITHROMAX] Allergy (Intermediate, Verified 06/23/24 11:06) EYE SWELLING HPI Comments Details: positive test would like repeat.... test was positive - she doesn't believe in . so she will keep it - has to tell him - they are not 'together' but have sex regularly. he states he'll be in the picture - he doesn't have other children. and lives in [place]. [facility] Medical History Bipolar 1 disorder PTSD (post-traumatic stress disorder) Depression Tendinitis Hypoglycemia Asthma Surgical History Hx of wisdom tooth extraction Hx of cholecystectomy Family History Mother Diabetes Seizures Arthritis Father High cholesterol Diabetes Stroke Daughter Seizures Cerebral palsy Son No problems noted. Social History Substance Use Type: Marijuana Review of Systems Const Details: Counseling visit: All systems reviewed & are unremarkable except as noted in HPI and below Reports as per HPI Resp Reports as per HPI GI Reports as per HPI Musc Reports as per HPI Neuro Reports as per HPI Psych Reports as per HPI Physical Exam Const General: cooperative, healthy appearing and no acute distress Nutritional Appearance: well nourished Orientation/consciousness: oriented to person Limitations: no limitations HEENT Other: wnl Eyes Other: wnl Chest Other: easy breathing Resp Effort & Inspection: able to speak in complete sentences Skin Other: normal in appearance Neuro General: oriented to person Psych Other: see HPI Mental Status: mental status grossly normal Speech and movement: Clear speech present Attitude: cooperative Thought process: Normal thought process present Assessment & Plan Assessment & Plan (1) Irregular menses: Code(s): N92.6 - Irregular menstruation, unspecified Category: Medical (2) Counseling and coordination of care: Code(s): Z71.89 - Other specified counseling Category: Medical (3) Unplanned : Code(s): Z34.90 - Encounter for supervision of normal , unspecified, unspecified trimester Category: Medical Plan extensive counseling and coord care of this [employer] student Orders: Orders AMB HCG Urine Test Today N92.6 - Irregular menstruation, unspecified, Z32.01 - Encounter for test, result positive Coding Level of Care Code Est Pt Level 3 (31243) Diagnoses Irregular menses N92.6 Counseling and coordination of care Z71.89 Unplanned Z34.90 Time Spent (min) 30 Comment counseling and coord care
== END ==
PROVIDERS: PCP Internal Medicine; Visit Provider Nurse Practitioner Family
DX: N92.6 Irregular menstruation, unspecified (principal); Z71.89 Other specified counseling; Z34.90 Encounter for supervision of normal pregnancy, unspecified, unspecified trimester
CPT/HCPCS: 99213

== ENCOUNTER 2024-07-06 21:17 | Emergency (ER) | payer OTHER, SELFPAY ==
[2024-07-06 21:20] VITALS: BP 153/89; PULSE 100; RESP 18; TEMP 36.9; O2SAT 100; BMI 455.9
[2024-07-06 22:05] LABS: MANUAL DIFF FLAG NO
[2024-07-06 22:06] LABS: Basophils Absolute Auto 0.1 X10*3/uL (0.0-0.2); Basophils Percent Auto 0.5 % (0-2); Eosinophils Absolute Auto 0.4 X10*3/uL (0.0-0.4); Eosinophils Percent Auto 2.7 % (0-4); Hematocrit 38.2 % (37.0-47.0); Hemoglobin 12.9 g/dl (12.0-16.0); Imm Gran Abs Auto 0.07 X10*3/uL (0.00-0.03); Imm Gran Pct Auto 0.5 % (0.0-0.4); Lymphocytes Absolute Auto 3.7 X10*3/uL (1.2-4.9); Lymphocytes Percent Auto 27.8 % (20-40); Mean Corpuscular HGB Conc 33.8 g/dl (31.0-35.0); Mean Corpuscular Hemoglobin 29.5 pg (27.0-33.0); Mean Corpuscular Volume 87.4 fL (80.0-98.0); Mean Platelet Volume 9.1 fL (9.4-12.3); Monocytes Absolute Auto 0.7 X10*3/uL (0.1-1.2); Monocytes Percent Auto 5.2 % (2-11); Neutrophils Absolute Auto 8.4 x10*3/uL (2.0-8.3); Neutrophils Percent Auto 63.3 % (45-73); Platelet Count 334 X10*3/uL (160-400); Red Blood Count 4.37 X10*6/uL (4.20-5.50); Red Cell Distribution Width 14.8 % (11.0-16.0); White Blood Count 13.2 X10*3/uL (4.8-10.8)
[2024-07-06 22:26] LABS: Alanine Aminotransferase 42 U/L (0-31); Alkaline Phosphatase 79 U/L (39-117); Anion Gap 14 (12-20); Aspartate Amino Transferase 26 U/L (5-31); Bilirubin Total 0.6 mg/dL (0.0-1.0); Blood Urea Nitrogen 11 mg/dL (9-16); Calcium 9.9 mg/dL (8.4-10.2); Carbon Dioxide 24 mmol/L (22-29); Chloride 103 mmol/L (96-108); Creatinine Clr Calc Pharmacy 786.5; Estimated Glomerular Filt Rate > 60; Glucose Random 310 mg/dL (60-115); HCG Quantitative 716 mIU/mL; Potassium 4.4 mmol/L (3.3-5.1); Sodium 137 mmol/L (135-145); Total Protein 7.8 g/dL (6.5-8.0)
[2024-07-06 23:43] VITALS: BP 128/83; PULSE 102; RESP 18; TEMP 37.1; O2SAT 97
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
--- NOTE | 2024-07-07 00:37 | MHC.EDTECH ---
This pct just assumed care of Patient ,vitals taken ,Patient urine sample collected and sent to lab .
[2024-07-07 00:48] LABS: Appearance Urine Cloudy; Color Urine Yellow; Glucose Urine UA >=1000 mg/dL (Negative); Leukocyte Esterase Urine Trace (Negative); Nitrite Urine Positive (Negative); PH 5.5 (5.0-9.0); Specific Gravity - Urine >= 1.030 (1.005-1.025); UMIC TRIGGER UACC YES; Urine Blood Trace (Negative); Urine Ketones Negative (Negative); Urine Protein Trace mg/dL (Neg-Trace)
[2024-07-07] MEDS: metFORMIN HCl 500 MG TABLET PO (00:49)
[2024-07-07 00:53] LABS: Bacteria Urine 4+ (None Seen); Hyaline Casts Urine 0-2 /LPF (0-2); UACC Culture Trigger YES; WBC Urine >50 /HPF (0-5)
[2024-07-07 00:57] VITALS: BP 128/83; PULSE 102; RESP 18; TEMP 37.1; O2SAT 97
== END 2024-07-07 00:57 | disposition home or self-care (01) ==
PROVIDERS: Emergency Provider Emergency Medicine; PCP Internal Medicine
DX: O99.810 Abnormal glucose complicating pregnancy (principal); Z3A.00 Weeks of gestation of pregnancy not specified; R10.12 Left upper quadrant pain; J45.909 Unspecified asthma, uncomplicated
CPT/HCPCS: 36415; 80053; 81001; 84702; 85025; 87086; 87088; 87186; 99283; 99284

== ENCOUNTER 2024-09-23 23:30 | Emergency (ER) | payer OTHER, SELFPAY ==
--- NOTE | ~2024-09-23 | XR_ITS ---
CLINICAL HISTORY: cough, dyspnea, pleuritic pain 1 view chest x-ray Comparison: CR/SR - CHEST 1 VIEW - 04/07/19 19:14 EDT Findings: There is some increased hazy opacity in the bilateral lung bases. No effusion or pneumothorax. Heart size is normal. No acute fracture. IMPRESSION: 1. Increased bibasilar hazy opacities which may be infection. This document has been electronically signed by: Chuck Holly MD on 09/24/2024 01:40:04
[2024-09-23 23:45] VITALS: BP 145/76; PULSE 105; RESP 20; TEMP 37; O2SAT 96; BMI 46.7
[2024-09-24 00:52] LABS: Influenza A PCR NEGATIVE (Negative); Influenza B PCR NEGATIVE (Negative); Resp Syncy Virus RNA Qual PCR NEGATIVE (Negative); SARS COV2 PCR INHOUSE NEGATIVE (Negative)
--- NOTE | 2024-09-24 00:55 | ED.GENADULT ---
HPI - General Adult General Chief complaint: Upper Respiratory Symptoms Stated complaint: bronchitis, diff breathing, Time Seen by Provider: 09/24/24 00:55 History of Present Illness ED Provider: Vilma PLEITEZ narrative: The patient is a 29-year-old female who has been having respiratory symptoms for almost a month. She is also . Currently she says she is about 17 weeks . She says that at the end of August she went to an urgent care with respiratory symptoms and was told that she had a cold. No particular medications were prescribed or recommended. Five days ago last she went to an urgent care and was diagnosed with bronchitis and was started on amoxicillin. She does not feel that she has gotten any better since starting the amoxicillin. She continues to have a runny nose and nasal discharge. She continues to have a cough. She says that she sometimes produces green or brown sputum. She has also a 1 point brought up what she thought was blood-tinged sputum. This was about 4 days ago. 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 She also feels that her voice has gotten significantly weaker. She also says that over the last day or 2 she has developed pain in her back that is worse with coughing, taking a deep breath, or moving. She feels this on both sides of her back in her thoracic region. The pain is worse in the left side than the right. No pain or swelling in her legs. This is her 3rd . Related Data Previous Rx's ?Medication ?Instructions ?Recorded cefpodoxime 100 mg tablet 100 mg PO BID 10 days #20 tabs 07/07/24 metformin 500 mg tablet 500 mg PO BID 7 days #14 tabs 07/07/24 cefpodoxime 200 mg tablet 200 mg PO BID 7 days #14 tabs 09/24/24 prednisone 20 mg tablet 20 mg PO DAILY #12 tabs 09/24/24 Allergies Allergy/AdvReac Type Severity Reaction Status Date / Time azithromycin [From ZITHROMAX] Allergy Intermediate EYE Verified 09/23/24 23:48 SWELLING Review of Systems Review of Systems: Yes all other systems are reviewed and are negative PMFSH Past Medical History Medical History Bipolar 1 disorder PTSD (post-traumatic stress disorder) Depression Tendinitis Hypoglycemia Asthma Surgical History Hx of wisdom tooth extraction Hx of cholecystectomy Family History Family History Mother Diabetes Seizures Arthritis Father High cholesterol Diabetes Stroke Daughter Seizures Cerebral palsy Son No problems noted. Social History Social History Substance Use Type: Marijuana Physical Exam ED Vital Signs: Vital Signs - 24 hr 09/23/24 23:45 09/24/24 02:02 09/24/24 02:15 Temperature 98.6 F Pulse Rate 105 H Respiratory Rate 20 18 Blood Pressure 145/76 H Pulse Oximetry 96 97 Oxygen Delivery Method Room Air Room Air 09/24/24 04:23 09/24/24 04:51 Temperature 97.9 F 97.9 F Pulse Rate 105 H 105 H Respiratory Rate 20 20 Blood Pressure 145/77 H 145/77 H Pulse Oximetry 94 94 Oxygen Delivery Method Room Air Room Air BMI result Body Mass Index 46.7 Const Other: The patient is awake and alert. She was sitting on the side of the bed resting her arms on a bedside table. She said this was the most comfortable position. She does not appear short of breath. She has a very quiet voice. HENMT Other: Face is symmetrical. Mucous membranes are moist. She seemed to have a runny nose. Eyes General: appearance normal, both eyes and all related structures Neck Neck: Yes no lymphadenopathy Resp Other: No increased work of breathing. The patient does not appear in respiratory distress. I felt there were crackles at the bases. Cardio Rate: regular rate Rhythm: regular rhythm Heart sounds: S1 normal heart sound present and S2 normal heart sound present GI Other: Abdomen is soft and nontender Skin General skin exam: no rashes or lesions noted Neuro Other: The patient is awake and alert with a normal mental status. Cranial nerves are grossly intact. She moves her extremities normally and appropriately. Extrem Other: No tenderness or swelling in her legs. No asymmetry. No edema. Medications Administered Discontinued Medications Generic Name Dose Route Start Last Admin Trade Name Freq PRN Reason Stop Dose Admin Acetaminophen 975 mg 09/24/24 02:56 09/24/24 03:16 Acetaminophen 325 Mg Tablet PO 09/24/24 02:57 975 mg ONCE ONE Administration Albuterol/Ipratropium 3 ml 09/24/24 01:43 09/24/24 02:06 Albuterol/Iprat 2.5/0.5mg 3 Ml Ampul.Neb INHALE 09/24/24 01:44 3 ml ONCE ONE Administration Albuterol/Ipratropium 3 ml 09/24/24 02:53 09/24/24 03:14 Albuterol/Iprat 2.5/0.5mg 3 Ml Ampul.Neb INHALE 09/24/24 02:54 3 ml ONCE ONE Administration Cefuroxime Axetil 500 mg 09/24/24 02:56 09/24/24 03:15 Cefuroxime Axetil 500 Mg Tablet PO 09/24/24 02:57 500 mg ONCE ONE Administration Prednisone 60 mg 09/24/24 02:55 09/24/24 03:16 Prednisone 20 Mg Tablet PO 09/24/24 02:56 60 mg ONCE ONE Administration Medical Decision Making Medical Decision Making [facility] Narrative: The patient is a 29-year-old female who is 17 weeks . She has been having symptoms of a respiratory infection for a few weeks. Her symptoms have gotten worse over the last week or so. She was prescribed amoxicillin and an albuterol inhaler at an urgent care 5 or 6 days ago. She has not gotten better. She has pain in her back with the coughing. She has a runny nose. She has a hoarseness to her voice. She has crackles at the bases of her lungs. Given all these findings my suspicion is that she has a respiratory infection rather than a pulmonary embolism. She does not look toxic. She looks like someone with a respiratory infection although she does not appear frankly short of breath or hypoxic. She does not seem toxic. I suspect that she might have an atypical pneumonia. Her chest x-ray shows bibasilar hazy opacities at the lung bases. Ideally the patient will be started on antibiotics to cover an atypical organism but the patient is allergic to azithromycin and doxycycline is not generally accepted as appropriate in . She may have gotten slightly better with bronchodilator treatments. She will be started on a course of prednisone in addition to cefpodoxime. I have also sent an expanded respiratory pathogen panel. She seemed to feel somewhat better. I felt she was safe for discharge. She should follow up with the midwives at [facility]. She does not have a primary care doctor. She should return if worse. Lab Data 09/24/24 01:36 09/24/24 01:36 Labs: Lab Results 09/24/24 09/24/24 Range/Units 00:01 01:36 WBC 13.9 H (4.8-10.8) X10*3/uL RBC 3.65 L (4.20-5.50) X10*6/uL Hgb 10.8 L (12.0-16.0) g/dl Hct 31.3 L (37.0-47.0) % MCV 85.8 (80.0-98.0) fL MCH 29.6 (27.0-33.0) pg MCHC 34.5 (31.0-35.0) g/dl RDW 15.0 (11.0-16.0) % Plt Count 269 (160-400) X10*3/uL MPV 8.6 L (9.4-12.3) fL Immature Gran % (Auto) 0.3 (0.0-0.4) % Neut % (Auto) 77.7 H (45-73) % Lymph % (Auto) 16.3 L (20-40) % [place] % (Auto) 5.0 (2-11) % Eos % (Auto) 0.5 (0-4) % Baso % (Auto) 0.2 (0-2) % Lymph # (Auto) 2.3 (1.2-4.9) X10*3/uL [place] # (Auto) 0.7 (0.1-1.2) X10*3/uL Eos # (Auto) 0.1 (0.0-0.4) X10*3/uL Baso # (Auto) 0.0 (0.0-0.2) X10*3/uL Abs Immat Gran (auto) 0.04 H (0.00-0.03) X10*3/uL Absolute Neuts (auto) 10.8 H (2.0-8.3) x10*3/uL Absolute Nucleated RBC 0.000 (0.0-0.012) X10*3/uL Nucleated RBC % (auto) 0.0 (0.0-0.2) /100WBC PT 12.4 (10.9-12.4) SEC INR 1.1 (0.9-1.1) Sodium 133 L (135-145) mmol/L Potassium 3.8 (3.3-5.1) mmol/L Chloride 103 (96-108) mmol/L Carbon Dioxide 21 L (22-29) mmol/L Anion Gap 13 (12-20) BUN 8 L (9-16) mg/dL Creatinine 0.61 (0.5-1.4) mg/dL Estim Creat Clear Calc 174.9 Estimated GFR > 60 Random Glucose 127 H (60-115) mg/dL Calcium 8.7 D (8.4-10.2) mg/dL Total Bilirubin 0.5 (0.0-1.0) mg/dL Direct Bilirubin 0.3 (0.0-0.5) mg/dL AST 21 (5-31) U/L ALT 12 (0-31) U/L Alkaline Phosphatase 88 (39-117) U/L Troponin I High Sens < 2.7 (<3.5-17.0) ng/L C-Reactive Protein 3.57 H (< or = 0.50) mg/dL B-Natriuretic Peptide < 10 (<100) pg/mL Total Protein 7.3 (6.5-8.0) g/dL Albumin 3.2 L (3.5-5.0) g/dL Influenza Type A (PCR) NEGATIVE (Negative) Influenza Type B (PCR) NEGATIVE (Negative) RSV RNA Qual (PCR) NEGATIVE (Negative) SARS-CoV-2 RNA (RT-PCR) NEGATIVE (Negative) Discharge Plan Discharge Clinical Impression: Pneumonia, with 17 completed weeks gestation Patient Disposition: Home, Self-Care Additional Instructions: I believe that your symptoms are related to a respiratory infection, possibly some degree of pneumonia. You tested negative for COVID, influenza, and RSV. An additional swab has been sent to check for additional viruses which may be causing your symptoms. In the meantime you have been started on a new course of antibiotics. Please cigar packer and picker your prescription for cefpodoxime in the morning and take a dose later this morning and then again this evening. After that continue to take the medication 2 times a day until done. You were also started on a short course of prednisone. Please take your next dose on Sunday evening. Continue to use the inhaler that you have 2 puffs every 4-6 hours as needed. Use this if you feel it is helpful. Drink lot of fluids. Please stay in touch with the midwives at [facility]. If you feel siginifcantly worse please return to the emergency room. Prescriptions: New cefpodoxime 200 mg tablet 200 mg PO BID 7 Days Qty: 14 0RF Rx Instructions: must administer with a meal/food prednisone 20 mg tablet 20 mg PO DAILY Qty: 12 0RF Rx Instructions: Take 3 tablets by mouth daily for 2 days then take 2 tablets by mouth daily for 3 days. No Action metformin 500 mg tablet 500 mg PO BID 7 Days Qty: 14 0RF cefpodoxime 100 mg tablet 100 mg PO BID 10 Days Qty: 20 0RF Rx Instructions: must administer with a meal/food Referrals: Rico Robertson MD [Physician] - Interventions: ED Discharge Assessment Last Done: 09/24/24 04:51 Discharge Date/Time: 09/24/24 04:51 Print Language: [place]
--- NOTE | 2024-09-24 01:04 | ECG_ITS ---
Test Reason : DYSPNEA Blood Pressure : */* mmHG Vent. Rate : 90 BPM Atrial Rate : 90 BPM P-R Int : 174 ms QRS Dur : 88 ms QT Int : 374 ms P-R-T Axes : 29 41 38 degrees QTcB Int : 457 ms Normal sinus rhythm Cannot rule out Anterior infarct , age undetermined Abnormal ECG When compared with ECG of 07-Apr-2019 19:47, No significant change was found Referred By: Deven Esparza Electronically Signed By: BRAYAN MARI MD
[2024-09-24 01:41] LABS: Basophils Percent Auto 0.2 % (0-2); Eosinophils Absolute Auto 0.1 X10*3/uL (0.0-0.4); Eosinophils Percent Auto 0.5 % (0-4); Hematocrit 31.3 % (37.0-47.0); Hemoglobin 10.8 g/dl (12.0-16.0); Imm Gran Abs Auto 0.04 X10*3/uL (0.00-0.03); Imm Gran Pct Auto 0.3 % (0.0-0.4); Lymphocytes Absolute Auto 2.3 X10*3/uL (1.2-4.9); Lymphocytes Percent Auto 16.3 % (20-40); MANUAL DIFF FLAG NO; Mean Corpuscular HGB Conc 34.5 g/dl (31.0-35.0); Mean Corpuscular Hemoglobin 29.6 pg (27.0-33.0); Mean Corpuscular Volume 85.8 fL (80.0-98.0); Mean Platelet Volume 8.6 fL (9.4-12.3); Monocytes Absolute Auto 0.7 X10*3/uL (0.1-1.2); Neutrophils Absolute Auto 10.8 x10*3/uL (2.0-8.3); Neutrophils Percent Auto 77.7 % (45-73); Platelet Count 269 X10*3/uL (160-400); Red Blood Count 3.65 X10*6/uL (4.20-5.50); White Blood Count 13.9 X10*3/uL (4.8-10.8)
[2024-09-24 01:47] LABS: INTERNATIONAL NORM RATIO 1.1 (0.9-1.1); Prothrombin Time 12.4 SEC (10.9-12.4)
[2024-09-24 02:02] VITALS: O2SAT 97
[2024-09-24 02:05] LABS: Troponin-I High Sensitivity < 2.7 ng/L (<3.5-17.0)
--- NOTE | 2024-09-24 02:05 | PC.NURSE ---
provider into assess pt, respiratory into see pt and provide a breathing treatment. labs collected and sent, x-ray and ekg completed.
[2024-09-24 02:06] LABS: Alanine Aminotransferase 12 U/L (0-31); Albumin Level 3.2 g/dL (3.5-5.0); Anion Gap 13 (12-20); Aspartate Amino Transferase 21 U/L (5-31); Bilirubin Direct 0.3 mg/dL (0.0-0.5); Bilirubin Total 0.5 mg/dL (0.0-1.0); Blood Urea Nitrogen 8 mg/dL (9-16); C Reactive Protein 3.57 mg/dL (< or = 0.50); Calcium 8.7 mg/dL (8.4-10.2); Carbon Dioxide 21 mmol/L (22-29); Chloride 103 mmol/L (96-108); Creatinine Clr Calc Pharmacy 174.9; Estimated Glomerular Filt Rate > 60; Glucose Random 127 mg/dL (60-115); Potassium 3.8 mmol/L (3.3-5.1); Sodium 133 mmol/L (135-145); Total Protein 7.3 g/dL (6.5-8.0)
[2024-09-24] MEDS: Albuterol/Iprat 2.5/0.5MG 3 ML AMPUL.NEB INHALE ×2 (02:06→03:14)
[2024-09-24 02:14] LABS: Alkaline Phosphatase 88 U/L (39-117)
[2024-09-24 02:15] VITALS: RESP 18; O2SAT 97
[2024-09-24 02:21] LABS: B Type Natriuretic Peptide < 10 pg/mL (<100)
[2024-09-24] MEDS: cefuroxime axetiL 500 MG TABLET PO (03:15)
[2024-09-24] MEDS: Acetaminophen 325 MG TABLET 975 MG PO (03:16)
[2024-09-24] MEDS: predniSONE 20 MG TABLET 60 MG PO (03:16)
[2024-09-24 04:23] VITALS: BP 145/77; PULSE 105; RESP 20; TEMP 36.6; O2SAT 94
[2024-09-24 04:51] VITALS: BP 145/77; PULSE 105; RESP 20; TEMP 36.6; O2SAT 94
[2024-09-24 11:31] LABS: Adenovirus PCR Not Detected (Not Detect.); Bordetella parapertussis PCR Not Detected (Not Detect.); Bordetella pertussis PCR Not Detected (Not Detect.); Chlamydia pneumoniae PCR Not Detected (Not Detect.); Coronavirus 229E PCR Not Detected (Not Detect.); Coronavirus HKU1 PCR Not Detected (Not Detect.); Coronavirus NL63 PCR Not Detected (Not Detect.); Coronavirus OC43 PCR Not Detected (Not Detect.); Human metapneumovirus PCR Not Detected (Not Detect.); Influenza A PCR Not Detected (Not Detect.); Influenza B PCR Not Detected (Not Detect.); Mycoplasma pneumoniae PCR Not Detected (Not Detect.); Parainfluenza 1 PCR Not Detected (Not Detect.); Parainfluenza 2 PCR Not Detected (Not Detect.); Parainfluenza 3 PCR Not Detected (Not Detect.); Parainfluenza 4 PCR Not Detected (Not Detect.); RSV PCR Not Detected (Not Detect.); Rhino/Enterovirus PCR Not Detected (Not Detect.)
[2024-09-24 11:48] LABS: SARS-CoV-2 PCR Not Detected (Not Detect.)
== END 2024-09-24 04:51 | disposition home or self-care (01) ==
PROVIDERS: Emergency Provider Emergency Medicine; PCP Internal Medicine
DX: O99.512 Diseases of the respiratory system complicating pregnancy, second trimester (principal); Z3A.17 17 weeks gestation of pregnancy; J18.9 Pneumonia, unspecified organism; R94.31 Abnormal electrocardiogram [ECG] [EKG]; R06.02 Shortness of breath; Z03.818 Encounter for observation for suspected exposure to other biological agents ruled out
CPT/HCPCS: 0241U; 36415; 71045; 80048; 80076; 83880; 84484; 85025; 85610; 86140; 87633; 93005; 94640; 99284; 99285

== ENCOUNTER → 2024-09-24 01:04 | Outpatient (BNV) | payer OTHER, SELFPAY | PROVIDERS: Emergency Provider Emergency Medicine; PCP Internal Medicine; Visit Provider Internal Medicine Cardiovascular Disease | DX: R06.00 Dyspnea, unspecified (principal) | CPT/HCPCS: 93010 ==

== ENCOUNTER → 2024-09-24 01:10 | Outpatient (BNV) | payer OTHER, SELFPAY | PROVIDERS: Emergency Provider Emergency Medicine; PCP Internal Medicine; Visit Provider Radiology Diagnostic Radiology | DX: R05.9 Cough, unspecified (principal) | CPT/HCPCS: 71045 ==

== ENCOUNTER 2025-08-05 08:15 | Outpatient (AMB) | payer OTHER, SELFPAY ==
--- OUTSIDE RECORDS SUMMARY | 2025-08-05 08:21 | XMS_ITS | Clinical Summary ---
Author Organization [address] Address [address] [place] [phone] Phone Care Team Providers Care Calliope Player Name Role Phone Elham Tidwell MD Primary Care Provider Social History Tobacco Use Types Packs/Day Years Used Date Smoking Tobacco: Never Assessed Comments Unknown Sex and Gender Information Value Date Recorded Sex Assigned at Not on file Legal Sex Female 8:13 PM EST Gender Identity Not on file Sexual Orientation Not on file Plan of Treatment Health Maintenance Due Date Last Done Comments Diabetes: Annual GFR (Glomerular Filtration Rate) 1994 Diabetes: Annual Foot Exam 01/20/2004 Diabetes: Annual Retina Eye Exam 01/20/2004 Hepatitis B Vaccines (1 of 3 - 19+ 3-dose series) 2013 Cervical Cancer Screening: P ap Smear 2015 Pneumococcal Vaccine: Pediatrics (0 to 5 Years) and At-Risk Patients (6 to 49 Years) (2 of 2 - PCV) 08/13/2016 08/13/2015 HPV Vaccines (1 - 3-dose SCD M series) 2021 Depression Screening 09/03/2024 Cholesterol Screening (Lipid Panel) 10/15/2024 Diabetes: Annual Urine Albumin-Creatinine Ratio (uACR) 10/15/2024 Diabetes: Blood Sugar Contro l Test (HGBA1C) 10/15/2024 HIV Screening 10/15/2024 Social Influencers of Health Screening 10/15/2024 COVID-19 Vaccine (2024-2 6 season) 2025 07/19/2022, 02/26/2021, 02/06/2021 Influenza Vaccine (#1) 2025 08/13/2015 DTaP,Tdap,and Td Vaccines (2 - Td or Tdap) 10/02/2028 10/02/2018 RSV Immunization Adult Patients (1 - 1-dose 75+ series) 2069 Hepatitis C Screening Completed 08/06/2024 HIB Vaccines Aged Out No longer eligi ble based on patient's age to complete this topic Hepatitis A Vaccines Aged Out No long er eligible based on patient's age to complete this topic IPV Vaccines Aged Out No longer eligi ble based on patient's age to complete this topic MMR Vaccines Aged Out No longer eligi ble based on patient's age to complete this topic Meningococcal ACWY Vaccine Aged Out N o longer eligible based on patient's age to complete this topic Meningococcal B Vaccine Aged Out No l onger eligible based on patient's age to complete this topic RSV Immunization Patients Under 20 months Aged Out No longer eligible b ased on patient's age to complete this topic Varicella Vaccines Aged Out No longer eligible based on patient's age to complete this topic Insurance MEDICAID ADVANTAGE Care Teams Calliope Player Relationship Specialty Start Date End Date Elham Tidwell MD [address] [place] [address] PCP - General Internal Medicine 06/13/19
--- OUTSIDE RECORDS SUMMARY | 2025-08-05 08:21 | XMS_ITS | Clinical Summary ---
Author Organization [facility] Address [address] [place] [id number] Phone Care Team Providers Care Can Intake Worker Name Role Phone Elham Tidwell MD Primary Care Provider Allergies Active Allergy Reactions Criticality Noted Date Comments Azithromycin Shortness Of Breath High 07/18/2024 Medications albuterol 90 mcg/actuation inhalerIndicatio ns:Mild asthma, unspecified whether complicated, unspecified whether persistent Inhale 2 puffs into the lungs every 6 (six) hours as needed for wheezing. 8 g 3 4 Active DEXCOM G7 SENSOR DeviIndications: Hyperglycemia in Use to continuously monitor blood sugars, wear on the back of the upper arm, change every 10 days 3 each 11 4 Active Additional Information Patient not taking.Reported on 05/22/2025 NIFEdipine (ADALAT CC) 30 MG 24 hr tablet Take 1 tablet (30 mg total) by mouth daily for 7 days. 7 tablet 5 Active levonorgestreL (MIRENA) 21 mcg/24hr (up to 8 yrs) 52 mg intrauterine device 1 Device by Intrauterine route. 5 Active oxyCODONE 5 MG immediate release tablet Take 1 tablet (5 mg total) by mouth every 4 (four) hours as needed for pain (specific location in comments). Partial fill ok 10 tablet 5 Active Active Problems Problem Noted Date Diagnosed Date Unwanted fertility 05/22/2025 Menorrhagia with regular cycle 05/22/2025 Severe pre-eclampsia in third trimester 03/05/20 25 Overview (03/05/2025): Transferred to [facility] at 35w for IOL for severe PEC. Went home on nifedipine 60 mg. Decreased to 30 mg at 4w PP. History of shoulder dystocia in prior , currently 07/23/2024 Overview (08/06/2024): With G2- baby was 10#14oz, had broken clavicle from delivery. Will need record release signed for [facility] /labor records--signed at [facility]. Wants to wait for 36w growth scan to determine route of delivery. Would want PCS if LGA. Assessment & Plan (01/15/2025 10:55 AM EDT): Ultrasound today shows total EFW at the 60th percentile. Will plan on repeat ultrasound around 37 weeks. If the infant is LGA, she will opt for a primary low-transverse section. At the present time, LGA is not present. Assessment & Plan (01/08/2025 12:47 PM EDT): Pt planning RCS Assessment & Plan (12/16/2024 12:30 PM EDT): Will plan MD consult NV, as disc at HR meeting to consider primary c/s given obesity BMI 46, type II DM, and history of SD. Reviewed plan with pt for consult visit with MD next week for mode of delivery counseling/recommendations. She is agreeable to this. Shares she strongly desires to avoid c/s. Assessment & Plan (09/20/2024 3:40 PM EST): Continues to prefer to wait until 36 weeks to do growth and disc PCS vs. Vaginal delivery at that time based on growth. Asthma Overview (09/30/2024): Not formally diagnosed, but needing inhaler for recent bout of pneumonia NEEDS to see PCP/Urgent Care for asthma maintenance/mgmt after pneumonia better if still needing inhaler. Assessment & Plan (11/13/2024 10:55 AM EDT): Pt reports occasional albuterol use. Generally feeling great. Resolved Problems Problem Noted Date Diagnosed Date Resolved Date Mild pre-eclampsia in third trimester 01/30/2025 03/02/2025 Assessment & Plan (01/30/2025 2:52 PM EDT): A: Pre-E with mild features FHR - Cat I with intermittent Cat II HELLP labs stable, LFTs have improved since 01/27 1 severe range BP with follow up in mild range New MATTHEWS P: C/W Dr Mayo - who recommends monitoring x 4 hours after severe range BP to see if she meets criteria for severe features Continuous EFM Tylenol 975 mg for MATTHEWS Reassess in 1-2 hrs or PRN If meets criteria for severe features will need [facility] Pre-eclampsia in third trimester 01/16/2025 03/02/2025 Overview (2025): 01/15/2025: First elevated blood pressure 126/90; Ratio 0.41, otherwise, normal labs. Has follow-up appointment in one week. 01/19/25 GARCÍA Hassan - she states that Lyudmila was kept on Observation for 24 hours at [facility]. She had mild range BPs, serial normal labs, and they checked her home cuff and found it to be inaccurate. Still has a diagnosis of Pre-E without severe features. Dr Marina did offer for Lyudmila to come to [facility] clinic because she also has some other risk factors but Lyudmila declines and prefers to deliver with us. Will need 37 week delivery or sooner if has severe features Twice weekly testing and weekly HELLP labs Dr Hassan also said if we recommended for patient to transfer to [facility] clinic they are happy to take her as she does have other risk factors as well (Type II DM on high dose of insulin). Will send a message to our Docs and Midwives to discuss. Assessment & Plan (01/27/2025 6:04 PM EDT): Lyudmila is a 29yo at 35w0d. Last week, pt's care was transferred pt to [facility] by this CNM, though pt reports she has not received any appts at [facility] yet, so was instructed to keep appt today. Was supposed to have NST at [facility] last week on Sunday, but states the order we sent for NST did not have NAYLA on it so they would not take her. Will follow up with our MFM coordinator to confirm where progress with transfer lies. Today pt had reassuring BPP, 04/10. Normal fluid, vertex. B/P normotensive. Will repeat weekly HELLP labs today. Plan to transfer to [facility] for further visits. Should have NST on Sunday, she is not able to get to [place] which is only working office location for NST currently. If she cannot get appt with [facility] on Sunday for NST, would rec NST at [facility]. Assessment & Plan (01/20/2025 4:08 PM EDT): Discussed with Lyudmila the practice recommendation that she transfer her care to [facility]. We disc that, in the setting of new preeclampsia diagnosis and the other risk factors present, it would not be unlikely that she would need delivery . In this case, we feel it is the safest plan for her to be at [facility] where NICU is also available. We disc the possible needs of if born and with other risk factors in place, including maternal type II DM on high dose of insulin. Lyudmila expressed understanding and disappointment with this recommendation. She reports she strongly wanted to avoid another delivery at [facility] as her last delivery in 2018 was traumatic for her, where there was a SD and there had been a 3 pound discrepancy in EFW by u/s per pt (was larger than expected). We reviewed the normal growth ultrasounds we have had through [facility] so far. Encouraged that she be up front with [facility] HR clinic providers about her concerns from prior delivery there so this can be discussed. Today, Lyudmila's initial B/P was 142/98 and repeat by this CNM at end of visit was 128/78. She denies h/a, visual changes, RUQ pain. Rev s/sx to monitor for and when to call. She reports that the home B/P cuff she picked up at [place] has been giving numbers that are 20 points higher than what she has had at office/hospital. She brought that with her today and looked at by this pulling unit operator - she was dispensed a regular adult cuff but needs a large adult cuff. Disc with Lyudmila that this is the cause for the inaccurate B/Ps she has been getting at home. Advised her to go back to [facility] to have them switch for appropriate size, needs Large Adult. Encouraged that she continue to check B/P daily, rev when to call. Will initiate transfer of care to [facility], referral order placed. As process of transfer will start this week, rec scheduling a NST with our office with CNM visit on Sunday to ensure she has twice weekly testing this week. BPP today 04/10. Weekly HELLP labs ordered and pt will repeat when she comes for NST on Sunday. Marginal insertion of umbili enio cord affecting management of mother 11/13/2024 Overview (11/13/2024): Consider 32 wk growth --covered by serial growth US done for obesity Assessment & Plan (01/15/2025 10:54 AM EDT): Ultrasound from January 13 shows an EFW of 2231 g which is at the 60th percentile. High-risk , third trimester 07/23/2024 03/02/2025 Overview (01/08/2025): ADDED TO HR LIST CNM/ OB-CMI score: 4 [07/18/2024] Group PN care? * screening Plans cfDNA & carrier screen Baby ASA? Neg Rh Pos GC/Chlam Neg/neg PAP 2020--would like at [facility] on 09/01 Flu Declines COVID-19 *Disc shelly for booster Hgb 10.9/34.1 GTT Repeat RPR NR Tdap declines EPDS * PPBC * GBS * Feeding Plan Wants to try breast Baby Jane Assessment & Plan (01/20/2025 1:23 PM EDT): Lyudmila is a 30yo at 34w0d who presents to routine OB visit after BPP. She denies Ctx, VB, LOF, or DFM. Accompanied by her partner. 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 She would like a letter for her job today to start her maternity leave, this was provided. Assessment & Plan (01/15/2025 10:53 AM EDT): She notes good movement. She denies any vaginal bleeding, leakage of fluid, or regular contractions. Overall, she is doing well. Assessment & Plan (01/08/2025 12:47 PM EDT): Lyudmila is tired but ok. Feels she is working hard at school, work and for this Baby is active. Aware of all testing Planning RCS--would like pre-op next week to plan Assessment & Plan (12/16/2024 12:34 PM EDT): Baudilio is a 29 y.o. at 29w0d, here for routine OB visit, here with her partner. She reports continued frequent BH, worse when she is working late at night, rev comfort measures. Denies LOF/VB/DFM. Has noticed a PUPPPS like rash that is c/w what she had in her last , trying hydrocortisone which is minimally helpful, rx sent for triamcinolone. Noticing an occasional numbness sensation in back on left side, lower rib area, rec trying heating pad/stretching, to call if worsening. Rev T3 warning signs and when to call. Assessment & Plan (11/27/2024 12:45 PM EDT): Lyudmila is feeling a lot of movement! Pt denies vb, lof, ctxs Needs to complete CBC and RPR, plans to today. Pt c/o RLP, we reviewed comforts FILIBERTO 2 wks Assessment & Plan (11/13/2024 11:01 AM EDT): Lyudmila is feeling generally well. Baby is active. She denies vb, lof, ctxs Reviewed overall plan of care for Reviewed level 2 results from [facility]. FILIBERTO 2 wks Assessment & Plan (10/13/2024 1:41 PM EST): Lyudmila is doing OK, but noticing some new symptoms - around 2 weeks started having headaches, around 3 per week, one-sided with throbbing quality. She is not getting much sleep - works until midnight, sometimes only sleeps from 6-9 am. We discussed importance of regular hydration and nourishment, regular sleep schedule and adequate sleep. Consider consuming some caffeine on days with headaches. Discussed treatment with Tylenol, cold cloth to forehead, rest. Also notes increased round ligament pain - discussed bracing with cough or sneeze, maternity support belt. Just had normal Level II U/S, results reviewed. Feeling regular movement. Assessment & Plan (09/20/2024 3:41 PM EST): Lyudmila is a 29yo at 16 weeks gestation. Here with her partner. Reports to be doing okay, has been noticing more labored breathing at times and occasionally feels like she is wheezing, states never formally diagnosed with asthma but wonders if she has it. We disc physiologic changes in that can contribute to labored breathing in and rev when she should present to ED for eval. Lyudmila is up to date with lab work. Has level II anatomy scheduled 10/13/24 with CNM visit to follow. Assessment & Plan (09/01/2024 1:19 PM EST): Lyudmila is doing ok, notes an increase in nausea recently along with rare vomiting. She is sleeping poorly, only around 4 hours/night, and has a lot of stress (trying to graduate from [employer] this spring) so we reviewed that this may impact her nausea. Discussed symptomatic care. She will try doxylamine/B6 combo for nausea and nighttime sedation. Pap smear collected today. Obesity affecting in first trimester 07/23/2024 03/02/2025 Overview (09/30/2024): Obesity in (BMI >30) BMI at Intake 46.17 Date Obesity plan of care discussed 08/06/24: BMI of 48 by 32w needs to transfer to tertiary care- she very much wants to stay with us--reviewed with pt that this means she cannot gain more than 20 pounds by 32w BMI measured at first in-person appointment, applies to patients entering entering into care from 03/03/24 on Recommend daily baby aspirin (162 mg daily) if another risk factor is present (nulliparity, family h/o pre-eclampsia in mother or sister, age >= 35, IVF , previous with SGA, previous stillbirth, interval >= 10 years between pregnancies) -- taking First trimester screen for diabetes - HgbA1c or 1-hr glucose tolerance test -- ordered Nutrition counseling 11-20lb weight gain -- Reviewed surveillance: Pre- BMI 40 or more, weekly testing at 34 weeks, EFW 32 and 36 weeks Induction only if indicated PP lovenox according to guidelines Assessment & Plan (01/08/2025 12:42 PM EDT): BMI 47.55 today Pt glad she does not meet criteria for transfer. Assessment & Plan (12/16/2024 12:34 PM EDT): BMI 46.52 today at 29w0d. She is aware of need to transfer care to tertiary center if BMI 48 by 32 weeks. Assessment & Plan (11/27/2024 12:40 PM EDT): BMI at 46.17 today. No weight gain in . Assessment & Plan (11/13/2024 10:54 AM EDT): No interval weight gain. We reviewed surveillance in the 3T. Ultrasounds ordered. Assessment & Plan (09/20/2024 3:39 PM EST): We disc possible need to transfer in , which pt is aware of - she reports she would like her care to be transferred to [facility] in [place] IF/WHEN it is recommended that she transfer. She prefers to wait to transfer until it is needed. Assessment & Plan (09/01/2024 1:17 PM EST): Reviewed recent change in BMI policy and how this impacts her plan of care for childbirth. We reviewed that a weight gain of 11 lbs would bring her to a BMI of 48; advised that she is likely to gain this. She is adament that she does not want to go to [facility], had a poor experience there. We reviewed other options including [facility], , [place], [facility]. Also discussed delivery at [facility] in [place]. She will consider her options. Will continue care here for now. Type 2 diabetes mellitus in , third trimester 07/22/2024 03/02/2025 Overview (01/08/2025): Started PG in poor control, started on metformin in ED visit. Now on prandial & qhs insulin. At 29 weeks visit on 12/16/24 pt reports Lantus 70 units at night and novolog 65 units, working with S[facility], reports fastings never below 95 despite recent insulin titration. Pt advised to call CEDE at that visit to review BS. Pre-existing diabetes o 1st trimester - (-TSH Type 1 only) - 1.16 - Hgb A1C (A1C btwn 5.7% and <6.5%) -- 8.1%--seeing CEDE & referred to [facility] - Baseline PIH labs - WNL - Consider baseline ECG - ordered & pt given # to call - consider NT scan (serum not needed if getting cfDNA) - ordered - Consider early anatomy scan - ordered - Begin baby ASA (162 mg daily) at 12-14 wks - discussed, rx sent - Referral to [facility] Diabetes in Program (normal B ObGyn referral, place DIP[facility] in comments) -- referral placed at [facility] o Level 2 sono (ordered) & echo (please disc/order echo at 08/22 visit) o Repeat: UA C&S at 28 wks Done, mixed palak o Growth sono at 28wks then q 4 wks - at 29 weeks EFW of 1306 g which is at the 34th percentile. o 32 wks BPP wkly o 36 wks add NST o Induction 39-40wks Assessment & Plan (02/12/2025 12:40 PM EDT): - Experienced preeclampsia during hospital admission 01/30, transferred to [facility] - Blood pressure dropped significantly after receiving an epidural, and there was a discussion about a possible emergency due to heart rate decelerations. -Delivered vaginally on 02/01/2025, baby only required NICU monitoring 24 hours, both Lyudmila and baby were able to be discharged together, Lyudmila reports no other complications for her or baby, she plans to be done having children - Currently and supplementing with formula. - Has an upcoming appointment with REGISTERED NURSE PRACTITIONER on 03/02/2025 for follow up, plans to discuss tubal removal. - A1c level was recorded as 8.4 at the onset of , likely does not require basal/bolus insulin and metformin, but there is no way to know with out monitoring - Advised to resume the use of continuous glucose monitor prior to consultation with Ailyn in a few weeks. -Discussed effects of on blood sugars - Will persist with current regimen of Lantus and metformin once daily, Lyudmila did not know her doses, can obtain discharge summary from [facility] - Necessity for short-acting insulin will be reassessed based on blood glucose levels post-. Mounjaro discussed as a potential future treatment option once ceases. Instructed to retain U-500 insulin as a backup, ensuring it is not confused with other medications, and to dispose of it upon expiration, likely will not require this, only needing it at the end of due to very high insulin requirements Assessment & Plan (01/30/2025 2:53 PM EDT): A: Type II DM on insulin in P: Continue Insulin regimen while in the hospital Will confirm and order Uses CGM - ok for nursing to use this for blood sugar monitoring Assessment & Plan (01/27/2025 6:04 PM EDT): Reports she was admitted to [facility] antepartum unit over weekend. Had presented to [facility] with SOB. heart rate tracing with decels. Pneumonia was diagnosed and treated. Pt also reports she was kept an extra day to work on managing blood sugars, she states I was switched to U500, 120 with meals, 80 overnight . Will request records from this hospital admission. Assessment & Plan (01/20/2025 1:22 PM EDT): BPP 04/10. Assessment & Plan (01/15/2025 11:05 AM EDT): She notes that about 85% of her blood sugars are within range. She remains on Lantis 100 units every morning and Novalog 80-100 with meals. She had an ultrasound done for growth on January 13 which showed the EFW at the 60th percentile with the AC at the 80th percentile. Will initiate weekly testing at this point. Assessment & Plan (01/12/2025 3:46 PM EDT): [facility] She is now 32w6d gestation Using CGM consistently, encouraged not taking breaks with CGM with no other means to monitor blood sugar, sent prescription for meter kit and supplies Reviewed blood sugar targets in Continues on basal/bolus insulin, has been self-adjusting doses appropriately, no adjustments made today Discussed important end of considerations including tight blood sugar control to reduce risk of baby having hypoglycemia before delivery Plans on advised that GLP1 is not approved in , likely best to remain on insulin after delivery, we discussed given such high doses of insulin and likely pre- diabetes diagnosis (though this isn't confirmed since onset was during ), will likely need medical management, we discussed insulin doses will not need to be as high and safe doses would be what she was on in early (Lantus 18 units daily, Novolog 6-10 units with meals), of course this will likley need to be titrated with blood sugar data Encouraged continued efforts at balanced, mindful eating Encouraged continued efforts with physical activity as tolerated Lyudmila will follow-up in 1 month with Ailyn Morgan and in 2 months with me, encouraged checking in weekly as needed via the portal, I will check in on dexcom logs weekly as well. Encouraged reaching out to me with any questions or concerns. Assessment & Plan (01/08/2025 12:45 PM EDT): BPPs scheduled Pt reports BS 85%under control. A1C has decreased. EKG never done this was ordered Reviewed echo--normal but incomplete. TE sent for follow up report. Pt reports she is working really hard with her diet and lifestyle changes. Assessment & Plan (12/16/2024 12:35 PM EDT): Lyudmila reports that she has been using Dexcom monitor and has been trying to be really conscious of her food intake, trying to make good choices. Despite that, her fastings remain elevated above 95. States that she has only ever had one fasting level below 95 and continues to titrate up Lantus dosing based on JJE recs. She increased to Lantus 70 units nightly a week ago. Has been using Novolog 65 units. She reports that she isn't very aware of her postprandial numbers as she expects SIXTO is tracking her monitor, but believes they are all under 140. Recommended that she call SIXTO today to review her BS levels to discuss need for any insulin dose changes. Additionally, requested that pt please keep a written down QID log to bring to her next OB appt next week to review with provider. Will have her see MD next week for co-management visit and further discussion around mode of delivery recommendations given Type DM II, obesity, shoulder dystocia, as disc in recent HR meeting. Growth u/s at 29 weeks, EFW 1306g, 34%ile. T3 surveillance scheduled out. Assessment & Plan (11/27/2024 12:43 PM EDT): Pt will need urine culture at 28 wks. Pt states bs generally good, however, today fasting 95 then sy[place] to 187 without eating. Plans to talk to SIXTO today. Has scheduled her testing Assessment & Plan (11/13/2024 10:59 AM EDT): Reviewed plan for testing/surveillance. Pt is aware. Has follow up echo scheduled for incomplete views. All ultrasounds ordered 28 wks--will need urine culture Pt met with SIXTO yesterday. Insulin adjusted per pt. Pt states BS has been good. Assessment & Plan (11/12/2024 12:33 PM EDT): [facility]. She is now 24 weeks gestation Using CGM consistently Reviewed blood sugar targets in Continues on basal/bolus insulin, has been self-adjusting doses appropriately, no adjustments made today Discussed changes in insulin resistant leading to necessity to pre-bolus further in advance as progresses Encouraged continued efforts at balanced, mindful eating Encouraged continued efforts with physical activity as tolerated Lyudmila will follow-up in 1 month with Ailyn Morgan and in 2 months with me, encouraged checking in weekly as needed via the portal, I will check in on dexcom logs weekly as well. Encouraged reaching out to me with any questions or concerns. Assessment & Plan (10/13/2024 1:42 PM EST): Continues to alternate visits with [facility] and [facility]. Has not been wearing CGM recently due to recent bronchitis; she is feeling better now and plans to restart. Prior to this she still was noting fasting values >100 and some postprandial elevations; has been instructed to increase insulin and will also f/u on Sunday of this week. Discussed and ordered echo. Will need surveillance scheduled at n.v. Assessment & Plan (10/13/2024 12:16 PM EST): >>ASSESSMENT AND PLAN FOR TYPE 2 DIABETES MELLITUS WITHOUT COMPLICATION, WITHOUT LONG-TERM CURRENT USE OF INSULIN WRITTEN ON 09/01/2024 1:14 PM BY JUHI PINTO CNM Working with [facility]. On insulin. Pt could be referred to [facility] for mgmt given T2DM, but this was not discussed today as she is already established [facility] and may be transferring care elsewhere - see problem list. Discussed and ordered Level II. Assessment & Plan (10/13/2024 12:16 PM EST): >>ASSESSMENT AND PLAN FOR TYPE 2 DIABETES MELLITUS WITHOUT COMPLICATION, WITHOUT LONG-TERM CURRENT USE OF INSULIN WRITTEN ON 09/20/2024 3:40 PM BY LAUREN HARLEY CNM Has a dexcom monitor. Reports that at last Endocrine appt they increased her fasting insulin to 34 units and long acting to 32 units . Assessment & Plan (10/13/2024 9:43 AM EST): [facility]udmila [facility]. She will be 20 weeks gestation Has been without CGM ~ 1 month Reviewed blood sugar targets in , testing frequency when without CGM, reports elevated fastings (120-130 even when not eating in the middle of the night), reports reassuring posptrandial readings, though numbers were not provided Continues on basal/bolus insulin, recommend increase in basal insulin Discussed changes in insulin resistant leading to necessity to pre-bolus further in advance as progresses Having issues with sleep over the past few days which has lead to more late night snacking/higher morning numbers, encouraged Lyudmila to avoid snacking as best as possible overnight and to discuss sleep issues with OB if they persist as poor sleep can lead to higher sugars Encouraged continued efforts at balanced, mindful eating Encouraged continued efforts with physical activity as tolerated Lyudmila will follow-up with me in 1 month and with Ailyn Morgan in 2 months, we will alternate monthly until delivery. Encouraged reaching out to me with any questions or concerns. PLAN Increase Lantus insulin to 40 units Work on giving mealtime 15-30 minutes ahead of meal, may benefit from a smaller dose if having a snack with carbs, start with 10 units Resume using dexcom Discuss sleep issues with OB as poor sleep can worsen insulin resistance/blood sugars I will check in on Dexcom data at the end of the week to evaluate need for further adjustments Assessment & Plan (09/08/2024 10:39 AM EST): Control is improving based upon the patient's dexcom G7 download. No frequent or severe hypoglycemia. She recalls having 2 episodes of hypoglycemia, she thinks she had gone too long without eating. She has self increased both her lantus and novolog to 30 units each. Will further increase her insulin to help improve her control. Continue work on eating healthy and trying to be active. Advised to call with blood glucose levels weekly if majority of glucose readings at target and to call sooner with problems with glucose control. Reviewed goals for pre/post-prandial readings (< < 95 fasting, < 140 one hour PC). [facility] Assessment & Plan (08/04/2024 8:51 AM EST): Control is suboptimal based upon the patient's SMBG readings and her dexcom G7 download. No frequent or severe hypoglycemia. She started taking 10 units of lantus on Thursday 08/02 and her glucose levels have continued to run high. Last night she took 15 units and her fasting glucose level was 168. Will increase the lantus to 20 units. She wants to start prandial insulin as she did this with her prior . Will start 6-10 units of novolog at meals to help bring her post prandial levels down. Her dexcom G7 was initially denied by the insurance due to not using 3 or more insulin injections a day. She is now up to 4 insulin injections a day. Will submit the PA again. Reviewed goals for pre/post-prandial readings (fasting <95 and < 140 1 hour PC). Reviewed typical changes in insulin requirements through . Advised to call with blood glucose levels weekly if majority of glucose readings at target and to call sooner with problems with glucose control. Continue to work on eating healthy. Assessment & Plan (07/22/2024 12:16 PM EST): Lyudmila presents for an initial visit in the [facility]. She is 7 weeks gestation, random glucose in the 300s per report at [place] ED, fingerstick glucose in office of 231 mg/dl (fasting) and A1c of 8.4%, though these were done on point of cares, so we will need to repeat these on another day to be diagnostic of diabetes Hyperglycemia likely preceded Has monitored blood sugars in previous pregnancies, politely declines review of blood sugar monitoring technique, needs new script since no longer has meter Also discussed CGM which Lyudmila requests, this was sent to the pharmacy and samples were provided since Lyudmila may not be able to afford all medications until later this month after first paycheck from new job Reviewed blood sugar targets in , testing frequency and provided a glucose log. Prescription for meter kit and testing supplies was sent to patients preferred pharmacy. Lyudmila will send BG and food logs into me weekly. We discussed gestational diabetes, implications and risks, and treatment plans depending on blood sugars. Given level of hyperglycemia at this stage of , recommend starting insulin which Lyudmila is agreeable to. We discussed starting with 10 units. Politely declines insulin instruction as she has used this in prior pregnancies, feels comfortable doing this again. Briefly verbally reviewed administration technique. Discussed remaining on metformin until starting insulin, but at that time, we can discontinue and optimize insulin as needed Encouraged continued efforts at balanced, mindful eating Encouraged continued efforts with physical activity as tolerated Lyudmila will follow-up with me in 1 month, sending weekly logs in between. Encouraged reaching out to me with any questions or concerns. Encounters Date Type Department Care Team Description 05/30/2025 Telephone [facility] Obstetrics - Virtual Department [address] [place] [id number] Clemente Diggs MD Advice Only 05/22/2025 12:01 PM EDT - 05/22/2025 1:28 PM EDT Surgery OR Admitting Dept - Virtual Department [address] [place] [phone] Clemente Diggs MD LAPAROSCOPIC SALPINGECTOMY BILATERAL 05/22/2025 11:54 AM EDT Anesthesia Event OR Admitting Dept - Virtual Department [address] [place] [id number] Ravinder Reid Jr., DO 05/22/2025 9:10 AM EDT - 05/22/2025 2:56 PM EDT Hospital Encounter OR Admitting Dept - Virtual Department [address] [place] [id number] Clemente Diggs MD Discharge Disposition: Home or Self Care 05/22/2025 Procedure Pass OR Admitting Dept - Virtual Department [address] [place] [id number] 05/21/2025 8:00 AM EDT Pre-Admission Testing Pre Procedure Evaluation [address] [place] [address] Clemente Diggs MD 05/08/2025 12:00 PM EDT Office Visit [facility] [address] [place] [address] [place] [address] Clemente Diggs MD Unwanted fertility (Primary Dx); Menorrhagia with regular cycle from Last 3 Months Immunizations Immunization Administration Dates Next Due Influenza Trivalent MDCK Preservative Free IM Pneumococcal polysaccharide PPSV23 08/13/2015 Tdap 12/25/2024,10/02/2018 Family History Relation Status Comments Daughter Alive Mother Alive Son Alive Social History Tobacco Use Types Packs/Day Years Used Date Smoking Tobacco: Former Passive Smoke Exposure: Past Smokeless Tobacco: Never Tobacco Cessation:Counseling Given: Not Answered Comments:Quit cigarette 01/2024 Alcohol Use Standard Drinks/Week Comments Not Currently 0 (1 standard drink = 0.6 oz pur e alcohol) socially: none in Education Answer Date Recorded Are you interested in more education? Not on carlos e 07/07/2024 Are you concerned about learning? Not on file 07/07/2024 No 07/07/2024 No 07/07/2024 Food Answer Date Recorded Within the past 6 months we worried whether our food would run out before we got money to buy more. Never True 01/30/2025 Within the past 6 months the food we bought just didn't last and we didn't have enough money to get more. Never True Residential Stability Answer Date Recor ded What is your housing situation today? I have ruby sing 01/30/2025 How many times have you moved in the past 12 sun th? One time 01/30/2025 Paying for Meds Answer Date Recorded Do you have trouble paying for medicines? No 01/30/2025 Paying Utility Bills Answer Date Record ed Do you have trouble paying your heating or elect ricity bill? No 01/30/2025 Transportation Answer Date Recorded Has the lack of transportati on kept you from medical appointments or from getting medications? No 01/30/2025 Digital Access Answer Date Recorded No 01/30/2025 Yes 01/30/2025 Do you have reliable internet access at home? Ye s 01/30/2025 Do you have a device (e.g., phone, tablet, computer) with a working camera? Yes 01/30/2025 Intimate Partner Violence Answer Date R ecorded Are you denied basic needs s uch as food, clothing, or medical care? No 01/30/2025 In the past 12 months have y ou been in a relationship with a person who hurts, threatens, or tries to control you? No 01/30/2025 Are you denied basic needs s uch as food, clothing, or medical care? No 01/30/2025 In the past 12 months have y ou been in a relationship with a person who hurts, threatens, or tries to control you? No 01/30/2025 Comments No Sex and Gender Information Value Date Recorded Sex Assigned at Female 07/21/2024 7:51 AM EST Legal Sex Female 4:48 PM EDT Gender Identity Female 07/21/2024 7:51 AM EST Sexual Orientation Straight 07/21/2024 7: 51 AM EST Last Filed Vital Signs Vital Sign Reading Time Taken Comments Blood Pressure 131/88 05/22/2025 2:14 PM EDT Pulse 64 05/22/2025 1:30 PM EDT Temperature 36.2 C (97.2 F) 05/22/2025 2:14 PM EDT Respiratory Rate 14 05/22/2025 2:14 PM EDT Oxygen Saturation 98% 05/22/2025 2:14 PM EDT Inhaled Oxygen Concentration - - Weight 117 kg (258 lb) 05/11/2025 12:49 PM EDT Height 162.6 cm (5' 4 ) 05/11/2025 12:49 PM EDT Body Mass Index 44.29 05/11/2025 12:49 PM EDT Plan of Treatment Health Maintenance Due Date Last Done Comments DEPRESSION SCREENING 2006 SMOKING Hx and SMOKELESS TOBACCO SCREENING 2007 LIPID PANEL 01/20/2012 PNEUMOCOCCAL VACCINES (0-49 years) (2 of 2 - PCV) 08/13/2016 08/13/2015 DIABETIC EYE EXAM 09/03/2024 URINE MICROALBUMIN/CREATININ E RATIO 09/03/2024 HEMOGLOBIN A1C 11/04/2024 08/06/2024, 07/21/2024 INFLUENZA VACCINE (#1) 2025 08/13/2015 COVID-19 VACCINE (4 - 2024-2 6 season) 2025 07/19/2022, 02/26/2021, 02/06/2021 BLOOD PRESSURE 11/05/2025 05/08/2025 PAP SMEAR 09/01/2029 09/01/2024 IUD 05/22/2033 05/22/2025 Adult Td,Tdap Booster 12/25/2034 12/25/2024 , 10/02/2018 HEPATITIS C SCREENING Completed 08/06/2024 , 08/06/2024 HIV ONE-TIME SCREENING (18-6 5 YEARS) Completed 08/06/2024 HEPATITIS A VACCINES Aged Out No long er eligible based on patient's age to complete this topic HIB VACCINES Aged Out No longer eligi ble based on patient's age to complete this topic MENINGOCOCCAL VACCINES (ACWY) Aged Out No longer eligible based on patient's age to complete this topic MENINGOCOCCAL VACCINES (B) Aged Out N o longer eligible based on patient's age to complete this topic Medical Devices Not on file Procedures Procedure Name Priority Date/Time Associated Diagnosis Comments AIRWAY PLACEMENT Routine 05/22/2025 11:5 8 AM EDT CO INSERT INTRAUTERINE DEVICE 05/22/2025 11:54 AM EDT Unwanted fertility Menorrhagia with regular cycle Special Needs Mirena SP CO LAP,RMV ADNEXAL STRUCTURE 05/22/2025 11:54 AM EDT Unwanted fertility Menorrhagia with regular cycle Special Needs Mirena SP URINE HCG Routine 05/22/2025 9:40 AM EDT ANATOMIC PATHOLOGY Routine 05/22/2025 12 :00 AM EDT PAP TEST Routine 09/01/2024 12:00 AM EST HEMOGLOBIN A1C Routine 08/06/2024 10:42 AM EST Encounter for supervision of other normal in first trimester Type 2 diabetes mellitus without complication, without long-term current use of insulin HEPATITIS C ANTIBODY, QUALITATIVE Routine 08/06/2024 10:42 AM EST Need for hepatitis C screening test Encounter for supervision of other normal in first trimester from Last 3 Months or Most Recently Relevant to Health Maintenance Results * ANES ETT DOUBLE LUMEN - AIRWAY LDA (05/22/2025 11:58 AM EDT) Narrative Ivonne Mtz CRNA - 05/22/2025 11:58 AM EDT Ivonne Mtz CRNA 05/22/2025 12:08 PM Airway Placement Procedure Note: Patient was not difficult to intubate. Procedure performed by: fellow/resident/PREP PERSON Anesthesiologist: Ravinder Reid Jr., DO Fellow/Resident/ANA: Ivonne Mtz CRNA Airway procedure initiated at:05/22/2025 11:58 AM and ended at. Personal Protective Equipment: Mask: surgical mask Eye Protection: eye shield Gloves: gloves Gown: no gown Mask Ventilation: Quality: easy Airway Placement: Technique: direct laryngoscopy Rapid sequence induction: no Details: Blade type: Mac Blade size: 3 Direct view: grade 1 Number of attempts: 1 ETT type: cuffed ETT size: 7.0 ETT depth at teeth: 20 ETT cuff inflation volume: 8 Tube position confirmed by: bilateral breath sounds and EtCO2 Outcomes: Evidence of dental injury? yes Complications observed? no Ravinder Reid Jr., DO CO ANESTHESIA Final R esult * HCG, urine (05/22/2025 9:40 AM EDT) URINE TEST Negative Negative [facility] Urine (Urine) 05/22/2025 9:4 0 AM EDT 05/22/2025 9:44 AM EDT Clemente Diggs MD LAB URINE ORDERABLES Final Re sult Performing Organization Address City/State/[facility] Co de Phone Number [address] [address] * Anatomic Pathology (Non-MGB) (05/22/2025 12:00 AM EDT) Report [address] [address] Hydraulic Press Tender: Brock Fischer MD Surgical Pathology Report FINAL PATHOLOGIC DIAGNOSIS: A. LEFT FALLOPIAN TUBE, SALPINGECTOMY: Normal fallopian tube. B. RIGHT FALLOPIAN TUBE, SALPINGECTOMY: Normal fallopian tube. C. ENDOMETRIUM, BIOPSY: Proliferative endometrium. Negative for a polyp and hyperplasia. Electronically Signed Out By Brock Fischer MD By his/her signature above, the pathologist listed as making the Final Diagnosis certifies that he/she has personally reviewed this case and confirmed or corrected the diagnosis. CLINICAL HISTORY Unwanted fertility [Z30.09] Menorrhagia with regular cycle [N92.0] SPECIMENS SUBMITTED: A: LEFT FALLOPIAN TUBE, SALPINGECTOMY B: RIGHT FALLOPIAN TUBE, SALPINGECTOMY C: ENDOMETRIUM, BIOPSY GROSS DESCRIPTION A. LEFT FALLOPIAN TUBE, SALPINGECTOMY: Received in formalin is a 6.6 cm in length fimbriated portion of fallopian tube which ranges in diameter from 0.4-0.7 cm. The serosa is smooth, pink-red. The distal aspect is bisected longitudinally to reveal a glistening cunha pink mucosa. Further sectioning of the fallopian tube reveals a pinpoint stellate lumen with a glistening cunha mucosa. A mass is not identified grossly. Marketing Analytics Manager sections to include the distal aspect bisected are submitted in a single cassette labeled A1. B. RIGHT FALLOPIAN TUBE, SALPINGECTOMY: Received in formalin is a 7.4 cm in length fimbriated portion of fallopian tube which ranges in diameter from 0.5-0.8 cm. The serosa is smooth, pink-red with a few scattered paratubal cysts measuring up to 0.2 cm in greatest dimension which exude translucent watery fluid upon sectioning. The distal aspect is bisected longitudinally to reveal a glistening cunha pink mucosa. Further sectioning of the fallopian tube reveals a pinpoint stellate lumen with a glistening cunha mucosa. A mass is not identified grossly. Marketing Analytics Manager sections to include the distal aspect bisected are submitted in a single cassette labeled B1. C. ENDOMETRIUM, BIOPSY: Received in formalin is a 2.0 x 2.0 x 0.3 cm aggregate of cunha-pink to cunha-red soft tissue which is submitted in toto in a single cassette labeled C1. Grossed by: OCTAVIA Kent, CASANDRA([facility]) [id number] 05/22/2025 Grossing Staff: [id number] Patient Name: BAUDILIO PRITCHETT : 1995 (Age: 30) Sex: F [facility] Date of Operation: 05/22/2025 Date of Reported: 05/25/2025 14:57 Results To: Clemente Diggs MD, BS Elham Tidwell MD [facility] Clinical History Unwanted fertility [Z30.09] Menorrhagia with regular cycle [N92.0] [facility] Final Diagnosis A. LEFT FALLOPIAN TUBE, SALPINGECTOMY: Normal fallopian tube. B. RIGHT FALLOPIAN TUBE, SALPINGECTOMY: Normal fallopian tube. C. ENDOMETRIUM, BIOPSY: Proliferative endometrium. Negative for a polyp and hyperplasia. [facility] Gross Description A. LEFT FALLOPIAN TUBE, SALPINGECTOMY: Received in formalin is a 6.6 cm in length fimbriated portion of fallopian tube which ranges in diameter from 0.4-0.7 cm. The serosa is smooth, pink-red. The distal aspect is bisected longitudinally to reveal a glistening cunha pink mucosa. Further sectioning of the fallopian tube reveals a pinpoint stellate lumen with a glistening cunha mucosa. A mass is not identified grossly. Marketing Analytics Manager sections to include the distal aspect bisected are submitted in a single cassette labeled A1. B. RIGHT FALLOPIAN TUBE, SALPINGECTOMY: Received in formalin is a 7.4 cm in length fimbriated portion of fallopian tube which ranges in diameter from 0.5-0.8 cm. The serosa is smooth, pink-red with a few scattered paratubal cysts measuring up to 0.2 cm in greatest dimension which exude translucent watery fluid upon sectioning. The distal aspect is bisected longitudinally to reveal a glistening cunha pink mucosa. Further sectioning of the fallopian tube reveals a pinpoint stellate lumen with a glistening cunha mucosa. A mass is not identified grossly. Marketing Analytics Manager sections to include the distal aspect bisected are submitted in a single cassette labeled B1. C. ENDOMETRIUM, BIOPSY: Received in formalin is a 2.0 x 2.0 x 0.3 cm aggregate of cunha-pink to cunha-red soft tissue which is submitted in toto in a single cassette labeled C1. Grossed by: OCTAVIA Kent, CASANDRA(ASCP) [facility] Conversion Type (Fallopian Tube, Left) 05/22/2025 05/22/2025 2:22 PM EDT Conversion Type (Fallopian Tube, Right) 05/22/2025 05/22/2025 2:22 PM EDT Conversion Type (Endometrium) 05/22/2025 05/22/2025 2:22 PM EDT Clemente Diggs MD LAB PATHOLOGY ORDERABLES Edit ed Result - Final [facility] [address] [place] [address] * Pap Test (09/01/2024 12:00 AM EST) Report [address] [address] Hydraulic Press Tender: Brock Fischer MD ACCOUNT UNDERWRITER Cytology Report FINAL DIAGNOSIS A. PAP SMEAR (THIN PREP) CE: SPECIMEN ADEQUACY: Satisfactory for evaluation; transformation zone absent/insufficien t. INTERPRETATION: NEGATIVE FOR INTRAEPITHELIAL LESION OR MALIGNANCY. Electronically Signed Out By: RUSTAM Ji(ASCP) The Pap test is a screening test primarily for squamous cancers and precursors and has associated false-negative and false-positive results. New technologies such as liquid-based preparations may decrease but will not eliminate all false-negative results. Regular sampling and follow-up of unexplained clinical signs and symptoms are recommended to minimize false negative results. PROCEDURES/ADDENDA HPV Testing (Requested) Ordered Date: 09/02/2024 A. PAP SMEAR (THIN PREP) CE: High-risk HPV Panel w/ extended genotyping NEG HPV 16-NEG HPV 18-NEG HPV 45-NEG HPV 33/58-NEG HPV 31-NEG HPV 56/59/66-NEG HPV 51-NEG HPV 52-NEG HPV 35/39/68-NEG Performed by real-time polymerase chain reaction (PCR) at [facility], [address] [place] [address] using the FDA-approved BD Onclarity9 HPV Assay with extended genotyping. Uses of the assay in scenarios other than those approved by the FDA should be considered off-label use. The accuracy and precision of this test for all other off-label specimen sources has been verified in the Cytopathology Laboratory of the [facility] and has not been cleared or approved by the U.S. Food and Drug Administration. Clinical correlation is advised. The assay assesses the E6/E7 DNA target and utilizes human beta globin as an internal control. Cytology and HPV testing are screening assays and should not be used as the sole means of detecting cancer. False-positives and false-negatives can occur. CLINICAL HISTORY Date of Last Menstrual Period: 05-27-2024 Menstrual History: Other Clinical Conditions: Screening Pap SPECIMEN SOURCE A: PAP SMEAR (THIN PREP) CE Patient Name: BAUDILIO PRITCHETT : 1995 (Age: 29) Sex: F Institution: [facility] Location: [facility] Date of Collection: 09/01/2024 Date of Reported: 09/08/2024 14:46 Results to: Juhi Pinto MSN [facility] Final Diagnosis A. PAP SMEAR (THIN PREP) CE: SPECIMEN ADEQUACY: Satisfactory for evaluation; transformation zone absent/insufficien t. INTERPRETATION: NEGATIVE FOR INTRAEPITHELIAL LESION OR MALIGNANCY. [facility] Results\Inter pretation A. PAP SMEAR (THIN PREP) CE: High-risk HPV Panel w/ extended genotyping NEG HPV 16-NEG HPV 18-NEG HPV 45-NEG HPV 33/58-NEG HPV 31-NEG HPV 56/59/66-NEG HPV 51-NEG HPV 52-NEG HPV 35/39/68-NEG Performed by real-time polymerase chain reaction (PCR) at [facility], [address] [place] [address] using the FDA-approved [employer] Onclarity HPV Assay with extended genotyping. Uses of the assay in scenarios other than those approved by the FDA should be considered off-label use. The accuracy and precision of this test for all other off-label specimen sources has been verified in the Cytopathology Laboratory of the [facility] and has not been cleared or approved by the U.S. Food and Drug Administration. Clinical correlation is advised. The assay assesses the E6/E7 DNA target and utilizes human beta globin as an internal control. Cytology and HPV testing are screening assays and should not be used as the sole means of detecting cancer. False-positives and false-negatives can occur. [facility] Conversion Type (Conversion Source) 09/01/2024 09/02/2024 9:40 AM EST Juhi Maiynes [facility] CYTOLOGY ORDERABLES Edited Resul t - Final [address] [address] * Hepatitis C antibody, qualitative (08/06/2024 10:42 AM EST) HCV NON-REACTIV E NON-REACTI VE [facility] Blood 08/06/2024 10:4 2 AM EST 08/06/2024 10:53 AM EST Fozia Boss CNM, MPH LAB BLOOD BKR ORDERABL ES Final Result Performing Organization Address City/[facility]/ZIP Co de Phone Number [address] [address] * (ABNORMAL) Hemoglobin A1c (08/06/2024 10:42 AM EST) HEMOGLOBIN A1C 8.1(H) 4.3 - 5.8 % [facility] Blood 08/06/2024 10:4 2 AM EST 08/06/2024 10:53 AM EST Fozia Boss CNM, MPH LAB BLOOD BKR ORDERABL ES Final Result Performing Organization Address City/[facility]/ZIP Co de Phone Number [address] [address] from Last 3 Months or Most Recently Relevant to Health Maintenance Insurance [facility] [employer] Advance Directives For more information, please contact: [phone] (9AM - 5PM [facility] Sunday-Sunday) * Full Code (Latest Code Status on File) Date Activated Date Inactivated Comments 05/22/2025 9:41 AM Question Answer Comments Code Status Confirmed With: Patient * Full Code Date Activated Date Inactivated Comments 01/30/2025 2:39 PM 05/22/2025 9:41 AM Question Answer Comments Code Status Confirmed With: Patient Care Teams Can Intake Worker Relationship Specialty Start Date End Date Elham Tidwell MD [address] [place] [address] PCP - General Internal Medicine 10/13/24 Additional Source Comments The information contained in this document represents components of the legal health record. It is not the complete legal health record.[facility]
--- OUTSIDE RECORDS SUMMARY | 2025-08-05 08:21 | XMS_ITS | Encounter Summary ---
Author Organization [facility] Address [address] [address] Phone Care Team Providers Care Quilter Fixer Name Role Phone Elham Tidwell MD Primary Care Provider Encounter Details Date Type Department Care Team ([facility] st Contact Info) Description 05/22/2025 Procedure Pass OR Admitting Dept - Virtual Department [address] [place] [address] Social History Tobacco Use Types Packs/Day Years Used Date Smoking Tobacco: Former Passive Smoke Exposure: Past Smokeless Tobacco: Never Comments:Quit cigarette 01/21 24 Alcohol Use Standard Drinks/Week Comments Not Currently [...] your housing situation today? I have ruby murry 01/30/2025 How many times have you moved in the past 12 mon ths? One time 01/30/2025 Paying for Meds Answer [...] Orientation Straight 07/21/2024 7: 51 AM EST documented as of this encounter Plan of Treatment Not on file documented as of this encounter Visit Diagnoses Not on filedocumented in this encounter Care Teams Quilter Fixer Relationship Specialty Start Date End Date Elham Tidwell MD [facility] [place] [address] PCP - General Internal Medicine 10/13/24 documented as of this encounter Additional Source Comments The information contained in this document represents components of the legal health record. It is not the complete legal health record.[facility]
--- NOTE | 2025-08-05 15:00 | A.OFFVIS_ITS ---
VS Expanded 08/05/25 15:10 Height 5 ft 4 in Weight 256 lb BMI 43.9 Body Fat % 45.7 Body Fat Mass 117 Fat Free Mass 138.8 Visceral Fat Rating 12 Body Water % 38.9 Body Water Mass 99.6 Intake Visit Reasons: [employer] BMI 44 Allergies azithromycin (From ZITHROMAX) Allergy (Intermediate, Verified 08/05/25 15:00) EYE SWELLING Medication List - Last Reconciled 08/05/25 by Chico Orozco MD albuterol sulfate 90 mcg/actuation (Ventolin HFA) 2 puffs inhalation Q6H PRN HPI HPI [employer] SW[employer] BMI 44: Details: Start time: 2.55pm, End time: 3.45pm ?I spent 45 minutes speaking with the patient on the phone plus an additional 5 minutes reviewing and updating records for a total of 50 minutes HPI Comments Details: Previous weight loss efforts: self diet, exercise Wakes up: 8am, Sleeps: 1am Breakfast: skips Lunch: 1pm (half sandwich) Dinner: 9-10pm (rice, chicken, chicken soup) Snacks: 4pm (chips, apple) Exercise: none Beverages: Coffee: none, Tea: none, Soda: Coke, Pepsi daily, Red Bull: 1 bottle, Juice: rarely, ETOH: rarely PFSH Medical History (Updated 08/05/25 @ 15:02 by Chico Orozco MD) Preeclampsia Gestational diabetes Morbid obesity Bipolar 1 disorder PTSD (post-traumatic stress disorder) Depression Tendinitis Hypoglycemia Asthma Surgical History (Updated 07/28/25 @ 14:36 by Consuelo Green CMA) Hx of tubal ligation Hx of wisdom tooth extraction Hx of cholecystectomy Family History Mother Diabetes Seizures Arthritis Father High cholesterol Diabetes Stroke Daughter Seizures Cerebral palsy Son No problems noted. Social History (Updated 07/28/25 @ 14:37 by Consuelo Green CMA) Alcohol intake: former Patient Tobacco Use Status: Former Tobacco user Substance Use Type: Marijuana Telehealth Telehealth Telehealth Platform: Telephone Location of provider rendering services: practice address Location of patient: address on file Patient Identification confirmed using: Name, : Yes Telehealth method: voice only Patient verbally consented to treatment: Yes Patient verbally consented to billing insurance company: Yes Patient informed of any privacy concerns related to visit: Yes Minutes spent on Phone/Video with Pt.: 50 Assessment & Plan Assessment & Plan (1) Morbid obesity: Code(s): E66.01 - Morbid (severe) obesity due to excess calories Category: Medical Plan: 1.? Plan for lap sleeve gastrectomy. If diaphragmatic or ventral hernias are present at time of surgery, these will be repaired laparoscopically as well. I emphasized the importance of close follow-up, adherence to instructions and good communication. The surgery does not replace the need to change your lifestlyle which is the cause of the obesity problem. The surgery provides the motivation to try again to change your lifestyle, it reduces the appetite and make the transition to a better lifestyle easier and doubles the amount of weight you would lose compared to doing the lifestyle change without the surgery. You will need to be on a liquid diet with protein shakes for 2 weeks before surgery to maximize weight loss and boost your nutritional status to recover better from surgery and also for the first two weeks after surgery to let the stomach heal before we introduce other foods. After the first 2 weeks we will introduce protein bars and soft foods like scrambled eggs, cottage cheese and yogurt and after the 6th week will introduce meat, fish and cooked vegetables in small amounts. Over time you should be able to eat everything in small amounts. Side effects like nausea, vomiting, heartburn or abdominal pain are not common in the practice unless you are not following in the practice. This operation requires lifetime commitment to following in our practice and communication with me. You will much less weight and experience side effects if you don?t communicate or not following in the practice. Complications are rare and in our practice is about 1/10 of the national average. However, you can develop bleeding that may require transfusion (hasn?t happened for year in the practice), you may from complications (we did not have any deaths in the practice) and infections. Infections are usually a result of breakdown in communication or not understanding or following directions correctly. They are difficult to treat, they can happen during the first 6 weeks, they may require to be in the hospital for weeks or even months, not being able to eat by mouth and you may have drains and surgeries to try and correct the issue. Other risks and complications include possible conversion to an open procedure, leaks, small bowel obstruction, blood clots, cardiac, or pulmonary complications, as penitentiary complications such as ulcers, insufficient weight loss and vitamin deficiencies. 2.Nutritional counseling. Start with one premade PREMIER protein (buy at [employer], or [employer], or [employer]) shake (Mix 4oz of PREMIER and NOT the whole bottle with 4oz almond milk) at 9am-11am, 1 protein bar (16gr Fit Crunch protein bars, buy at [employer] or [employer]) at 12pm-2pm, another premade PREMIER protein (Mix 4oz of PREMIER and NOT the whole bottle with 4oz almond milk) at 3pm-5pm, dinner at 6pm (10 forks of protein and 10 forks of salad/vegetables) and two more [employer] protein bars after dinner at 8pm-10pm and 11pm to 1am. So you do 2 protein shakes, 3 protein bars and one meal per day. Meal to include lean meat (beef, fish, pork, turkey, chicken), or slovenian yogurt, or egg whites, or beans with a salad with olive oil and fruits (berries, pears, apples, kiwi). Avoid salt, breads, potatoes, rice, pasta, desserts. 3. Each shake would be drunk slowly, like coffee in a period of 2 hours. 4. Cut each bar in 4 pieces and eat each piece in 30min ?to make each bar last 2 hours. 5. I emphasized the importance of measuring accurately the food portion and measure it when serving the food in plate 6. The meal portions include 10 full-size forks of meat and 10 full-size forks of salad. You always eat the meat portion but you can replace up to 5 forks for salad/vegetables with rice, potatoes or pasta, or a fruit ?if you like. The less you do it the better weight loss will be. 7. One full-size fork is what it can be scooped on the fork without falling aside and not what can be bit with the fork. Use regular forks like those you find in a typical restaurant. 8.? Please buy the body composition scale we discussed and send me weight measurements as soon as possible and then once a week. Always include your diet and exercise plan. 9. The best choice would be to purchase a stationary bike at home that can track calories. If you get one, please start stationary bike at a resistance level of 4.0 Increase level by 1.0 every 3 min to a max level of 10.0. Stay at this level for 3 min and then return to level 4.0 and repeat same steps until 300 calories are burned. Goal is to burn 2000 calories per week on exercise 10.?It is important of avoiding and for at least 18 months postoperatively and has been discussed at the infosession. 11. Goal is to lose at least 1.5-2lbs per week 12. Goal to lose 10% of your weight before surgery, which is about 26lbs. Ultimate weight goal: 230lbs before surgery 13. Please follow the diet plan exactly without any change. If you don't like something about the plan or you feel hungry you need to communicate with me so I can help you revise the plan. You should not change the plan yourself 14. To be scheduled for EGD to assess the stomach's anatomy. The possibility of biopsies was discussed. Patient needs to avoid use of NSAIDs and aspirin for 1 week prior to EGD. You must be on liquids only the day before your endoscopy. Risks of perforation and bleeding was discussed with the patient. This will be an outpatient procedure with IV sedation. 15. As of tomorrow, please send me a picture of your meal plate after you measure it, but before you consume it. Orders: Orders Insulin Today E66.01 - Morbid (severe) obesity due to excess calories Hemoglobin A1c Today E66.01 - Morbid (severe) obesity due to excess calories H Pylori Breath Test Today E66.01 - Morbid (severe) obesity due to excess calories IRON PROFILE Today E66.01 - Morbid (severe) obesity due to excess calories Zinc Today E66.01 - Morbid (severe) obesity due to excess calories Vitamin D 25-OH Total Today E66.01 - Morbid (severe) obesity due to excess calories US abdomen comp w elastography Today E66.01 - Morbid (severe) obesity due to excess calories Complete Blood Count Auto Diff Today E66.01 - Morbid (severe) obesity due to excess calories Lipid Panel Today E66.01 - Morbid (severe) obesity due to excess calories Comprehensive Met. Panel Today E66.01 - Morbid (severe) obesity due to excess calories Vitamin B12 and Folate Today E66.01 - Morbid (severe) obesity due to excess calories C Reactive Protein Today E66.01 - Morbid (severe) obesity due to excess calories Vitamin B1 Today E66.01 - Morbid (severe) obesity due to excess calories Vitamin A Today E66.01 - Morbid (severe) obesity due to excess calories TSH reflex Free T4 Today E66.01 - Morbid (severe) obesity due to excess calories Ferritin Today E66.01 - Morbid (severe) obesity due to excess calories XR chest 2V Today E66.01 - Morbid (severe) obesity due to excess calories ECG 12 lead EKG Today E66.01 - Morbid (severe) obesity due to excess calories FL upper GI w air Today E66.01 - Morbid (severe) obesity due to excess calories Referrals Behavioral Health Referral E66.01 - Morbid (severe) obesity due to excess calories Nutrition/Dietitian Referral E66.01 - Morbid (severe) obesity due to excess calories
[2025-08-05 15:10] VITALS: BMI 43.9
== END 2025-08-05 15:46 | disposition home or self-care (01) ==
LOC: HO.HBS 08:15
PROVIDERS: Visit Provider Surgery
DX: E66.01 Morbid (severe) obesity due to excess calories (principal)
CPT/HCPCS: 99204

== ENCOUNTER 2025-08-18 11:42 | Outpatient (REF) | payer OTHER, SELFPAY ==
--- NOTE | ~2025-08-18 | XR_ITS ---
EXAMINATION: XR CHEST CLINICAL INFORMATION: E66.01 - Morbid (severe) obesity due to excess calories COMPARISON: Previous chest x-ray September 2024 TECHNIQUE: 2 views of the chest were obtained. FINDINGS: No significant abnormality is noted involving the heart, lungs, mediastinum, bony thorax or soft tissues. XR/XR chest 2V IMPRESSION: Unremarkable examination. Electronically signed by: Rahel Adame MD 08/18/2025 01:20 PM [facility]
--- NOTE | 2025-08-18 12:04 | ECG_ITS ---
Test Reason : e66.01 Blood Pressure : */* mmHG Vent. Rate : 78 BPM Atrial Rate : 78 BPM P-R Int : 174 ms QRS Dur : 96 ms QT Int : 396 ms P-R-T Axes : 37 41 46 degrees QTcB Int : 451 ms Normal sinus rhythm Normal ECG When compared with ECG of 24-Sep-2024 01:26, No significant change was found Referred By: Chico Orozco Electronically Signed By: Jossue Allan
[2025-08-18 13:09] LABS: MANUAL DIFF FLAG NO
[2025-08-18 13:47] LABS: Hematocrit 38.1 % (37.0-47.0); Hemoglobin 12.2 g/dl (12.0-16.0); Imm Gran Abs Auto 0.03 X10*3/uL (0.00-0.03); Imm Gran Pct Auto 0.3 % (0.0-0.4); Lymphocytes Absolute Auto 3.0 X10*3/uL (1.2-4.9); Mean Corpuscular HGB Conc 32.0 g/dl (31.0-35.0); Mean Corpuscular Hemoglobin 26.9 pg (27.0-33.0); Mean Corpuscular Volume 84.1 fL (80.0-98.0); NRBC Abs Auto 0.000 X10*3/uL (0.0-0.012); NRBC Pct Auto 0.0 /100WBC (0.0-0.2); Platelet Count 412 X10*3/uL (160-400); Red Blood Count 4.53 X10*6/uL (4.20-5.50); White Blood Count 11.2 X10*3/uL (4.8-10.8)
[2025-08-18 14:09] LABS: Alanine Aminotransferase 27 U/L (0-31); Albumin Level 4.5 g/dL (3.5-5.0); Alkaline Phosphatase 105 U/L (39-117); Anion Gap 11 (12-20); Aspartate Amino Transferase 25 U/L (5-31); Blood Urea Nitrogen 14 mg/dL (9-16); Calcium 9.2 mg/dL (8.4-10.2); Carbon Dioxide 26 mmol/L (22-29); Chloride 103 mmol/L (96-108); Cholesterol 127 mg/dL (<200); Estimated Glomerular Filt Rate > 60; HDL Cholesterol 30 mg/dL (>40); Iron 47 mcg/dL (30-160); Percent Iron Saturation 20 % (15-50); Potassium 4.2 mmol/L (3.3-5.1); Sodium 136 mmol/L (135-145); Total Iron Binding Capacity 240 mcg/dL (228-428); Total Protein 7.7 g/dL (6.5-8.0); Triglycerides 120 mg/dL (<150); Unsaturated Iron Binding 193 ug/dL
[2025-08-18 14:27] LABS: Ferritin 75 ng/mL (10-122)
[2025-08-18 14:37] LABS: Folate 8.2 ng/mL (> or = 4.0); Vitamin B12 450 pg/mL (200-900)
--- OUTSIDE RECORDS SUMMARY | 2025-08-18 15:32 | XMS_ITS | Clinical Summary ---
Author Organization [address] Address [address] [place] [phone] Phone Care Team Providers Care Investigation Clerk Name Role Phone Elham Tidwell MD Primary [...] this topic Insurance MEDICAID ADVANTAGE Care Teams Investigation Clerk Relationship Specialty Start Date End Date Elham Tidwell MD [address] [place] [address] PCP - General Internal Medicine 06/13/19
--- OUTSIDE RECORDS SUMMARY | 2025-08-18 15:32 | XMS_ITS | Clinical Summary ---
Author Organization [facility] Address [address] [place] [id number] Phone Care Team Providers Care Business Integration Manager Name Role Phone Elham Tidwell MD Primary [...] trimester 03/05/20 25 Overview (03/05/2025): Transferred to [facility] at 35w for IOL for severe PEC. [...] repeat ultrasound around 37 weeks. If the is LGA, she will opt for a [...] kept on Observation for 24 hours at [facility]. She had mild range BPs, serial normal [...] we recommended for patient to transfer to [facility] clinic they are happy to take her as she does have other risk factors as well (Type II DM on high dose of insulin). Will send a message to our Docs and Midwives to discuss. Assessment & Plan (01/27/2025 6:04 PM EDT): Lyudmila is a 29yo at 35w0d. Last week, pt's care was transferred pt to [facility] by this CNM, though pt reports she has not received any appts at [facility] yet, so was instructed to keep appt today. Was supposed to have NST at [facility] last week on Sunday, but states the order we sent for NST did not have NAYLA on it so they would not take her. Will follow up with our MFM coordinator to confirm where progress with transfer lies. Today pt had reassuring BPP, 04/10. Normal fluid, vertex. B/P normotensive. Will repeat weekly HELLP labs today. Plan to transfer to [facility] for further visits. Should have NST on Sunday, she is not able to get to [place] which is only working office location for NST currently. If she cannot get appt with [facility] on Sunday for NST, would rec NST at [facility]. Assessment & Plan (01/20/2025 4:08 PM EDT): Discussed with Lyudmila the practice recommendation that she [facility]. We disc that, in the setting of [...] strongly wanted to avoid another delivery at [facility] as her last delivery in 2018 was traumatic for her, where there was a SD and there had been a 3 pound discrepancy in EFW by u/s per pt (was larger than expected). We reviewed the normal growth ultrasounds we have had through [facility] so far. Encouraged that she be up front with [facility] providers about her concerns from prior delivery there so this can be discussed. Today, Lyudmila's initial B/P was 142/98 and repeat by this CNM at end of visit was 128/78. She denies h/a, visual changes, RUQ pain. Rev s/sx to monitor for and when to call. She reports that the home B/P cuff she picked up at [employer] has been giving numbers that are 20 points higher than what she has had at office/hospital. She brought that with her today and looked at by this gang worker - she was dispensed a regular adult [...] call. Will initiate transfer of care to [facility], referral order placed. As process [...] Pos GC/Chlam Neg/neg PAP 2020--would like at [place] on 09/01 Flu Declines COVID-19 *Disc shelly for booster Hgb 10.9/34.1 GTT Repeat RPR NR Tdap declines EPDS * PPBC * GBS * Infant Feeding Plan Wants to try breast Baby Jane Assessment & Plan (01/20/2025 1:23 PM EDT): Lyudmila is a 30yo at 34w0d who presents to routine OB visit after BPP. She denies Ctx, VB, LOF, or DFM. Accompanied by her partner. 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 She would like a letter for her [...] care for Reviewed level 2 results from [facility]. FILIBERTO 2 wks Assessment & Plan (10/13/2024 [...] lot of stress (trying to graduate from [employer] this spring) so we reviewed that [...] like her care to be transferred to [facility] in [place] IF/WHEN it is recommended that she transfer. [...] there. We reviewed other options including [facility], [facility], [facility], [facility]. Also discussed delivery at [facility] in [place]. She will consider her options. Will continue [...] - discussed, rx sent - Referral to [facility] Diabetes in Program (normal B ObGyn referral, [...] formula. - Has an upcoming appointment with AURICULOTHERAPIST on 03/02/2025 for follow up, plans to [...] PM EDT): Reports she was admitted to [facility] antepartum unit over weekend. Had presented to [...] returns for follow up visit in the [facility]. She is now 32w6d gestation Using CGM [...] returns for follow up visit in the [facility]. She is now 24 weeks gestation Using [...] PM BY JUHI PINTO CNM Working with [facility]. On insulin. Pt could be referred to [facility] for mgmt given T2DM, but this was not discussed today as she is already established [facility] and may be transferring care elsewhere - [...] returns for follow up visit in the [facility]. She will be 20 weeks gestation Has [...] one hour PC). [facility] Assessment & Plan (08/04/2024 8:51 AM EST): [...] presents for an initial visit in the [facility]. She is 7 weeks gestation, random glucose in the 300s per report at [place] ED, fingerstick glucose in office of 231 [...] 05/30/2025 Telephone [facility] Obstetrics - Virtual Department [address] [place] [phone] Clemente Diggs MD Advice Only 05/22/2025 12:01 PM EDT - 05/22/2025 1:28 PM EDT Surgery OR Admitting Dept - Virtual Department [address] [place] [phone] Clemente Diggs MD LAPAROSCOPIC SALPINGECTOMY BILATERAL 05/22/2025 11:54 AM EDT Anesthesia Event OR Admitting Dept - Virtual Department [address] [place] [id number] Ravinder Reid Jr., DO 05/22/2025 9:10 AM EDT - 05/22/2025 2:56 PM EDT Hospital Encounter OR Admitting Dept - Virtual Department [address] [place] [phone] Clemente Diggs MD Discharge Disposition: Home or Self Care 05/22/2025 Procedure Pass OR Admitting Dept - Virtual Department [address] [place] [phone] 05/21/2025 8:00 AM EDT Pre-Admission Testing Pre Procedure Evaluation [address] [place] [phone] Clemente Diggs MD from Last 3 Months Immunizations Immunization Administration [...] you moved in the past 12 sun ths? One time 01/30/2025 Paying for Meds [...] PLACEMENT Routine 05/22/2025 11:5 8 AM EDT ID INSERT INTRAUTERINE DEVICE 05/22/2025 11:54 AM EDT Unwanted fertility Menorrhagia with regular cycle Special Needs Mirena SP ID LAP,RMV ADNEXAL STRUCTURE 05/22/2025 11:54 AM EDT [...] not difficult to intubate. Procedure performed by: fellow/resident/[facility] NURSE Anesthesiologist: Ravinder Reid Jr., DO Fellow/Resident/[facility] NURSE: Ivonne Mtz CRNA Airway procedure initiated at:05/22/2025 [...] Complications observed? no Ravinder Reid Jr., DO ID ANESTHESIA Final R esult * HCG, urine (05/22/2025 9:40 AM EDT) URINE TEST Negative Negative [facility] Urine (Urine) 05/22/2025 9:4 0 AM EDT 05/22/2025 9:44 AM EDT Clemente Diggs MD LAB URINE ORDERABLES Final Re sult [address] [address] * Anatomic Pathology (Non-MGB) (05/22/2025 12:00 AM EDT) Report [address] [address] Saxophone Teacher: Brock Fischer MD Surgical Pathology Report FINAL [...] mucosa. A mass is not identified grossly. Office Equipment Mechanic sections to include the distal aspect bisected [...] mucosa. A mass is not identified grossly. Office Equipment Mechanic sections to include the distal aspect bisected are submitted in a single cassette labeled B1. C. ENDOMETRIUM, BIOPSY: Received in formalin is a 2.0 x 2.0 x 0.3 cm aggregate of cunha-pink to cunha-red soft tissue which is submitted in toto in a single cassette labeled C1. Grossed by: OCTAVIA Kent, CASANDRA([facility]) [id number] 05/22/2025 Grossing Staff: [id number] Patient Name: BAUDILIO PRITCHETT : 1995 (Age: 30) Sex: F Institution: [facility] Location: [facility] Date of Operation: 05/22/2025 Date of Reported: 05/25/2025 14:57 Results To: Clemente Diggs MD, BS Elham Tidwell MD [facility] Clinical History Unwanted fertility [Z30.09] Menorrhagia with regular cycle [N92.0] [facility] Final Diagnosis A. LEFT FALLOPIAN TUBE, SALPINGECTOMY: Normal fallopian tube. B. RIGHT FALLOPIAN TUBE, SALPINGECTOMY: Normal fallopian tube. C. ENDOMETRIUM, BIOPSY: Proliferative endometrium. Negative for a polyp and hyperplasia. [facility] Gross Description A. LEFT FALLOPIAN TUBE, [...] mucosa. A mass is not identified grossly. Office Equipment Mechanic sections to include the distal aspect bisected [...] mucosa. A mass is not identified grossly. Office Equipment Mechanic sections to include the distal aspect bisected are submitted in a single cassette labeled B1. C. ENDOMETRIUM, BIOPSY: Received in formalin is a 2.0 x 2.0 x 0.3 cm aggregate of cunha-pink to cunha-red soft tissue which is submitted in toto in a single cassette labeled C1. Grossed by: OCTAVIA Kent, PA(ASCP) [facility] Conversion Type (Fallopian Tube, Left) 05/22/2025 05/22/2025 2:22 PM EDT Conversion Type (Fallopian Tube, Right) 05/22/2025 05/22/2025 2:22 PM EDT Conversion Type (Endometrium) 05/22/2025 05/22/2025 2:22 PM EDT Clemente Diggs MD LAB PATHOLOGY ORDERABLES Edit ed Result - Final [address] [address] * Pap Test (09/01/2024 12:00 AM EST) Report [address] [address] Saxophone Teacher: Brock Fischer MD DINING CHAIR SEAT CUSHION TRIMMER Cytology Report FINAL DIAGNOSIS A. PAP SMEAR [...] by real-time polymerase chain reaction (PCR) at [facility], [address] [place] [address] using the FDA-approved BD Onclarity9 HPV Assay with extended genotyping. Uses of the assay in scenarios other than those approved by the FDA should be considered off-label use. The accuracy and precision of this test for all other off-label specimen sources has been verified in the Cytopathology Laboratory of the [facility] and has not been cleared or [...] : 1995 (Age: 29) Sex: F Institution: [facility] Location: [facility] Date of Collection: 09/01/2024 Date of Reported: 09/08/2024 14:46 Results to: Juhi Pinto MSN [facility] Final Diagnosis A. PAP SMEAR (THIN PREP) CE: SPECIMEN ADEQUACY: Satisfactory for evaluation; transformation zone absent/insufficien t. INTERPRETATION: NEGATIVE FOR INTRAEPITHELIAL LESION OR MALIGNANCY. [facility] Results\Inter pretation A. PAP SMEAR (THIN PREP) CE: High-risk HPV Panel w/ extended genotyping NEG HPV 16-NEG HPV 18-NEG HPV 45-NEG HPV 33/58-NEG HPV 31-NEG HPV 56/59/66-NEG HPV 51-NEG HPV 52-NEG HPV 35/39/68-NEG Performed by real-time polymerase chain reaction (PCR) at [facility], [address] [place] [address] using the FDA-approved [employer] Onclarity HPV Assay with extended genotyping. Uses of the assay in scenarios other than those approved by the FDA should be considered off-label use. The accuracy and precision of this test for all other off-label specimen sources has been verified in the Cytopathology Laboratory of the [facility] and has not been cleared or approved by the U.S. Food and Drug Administration. Clinical correlation is advised. The assay assesses the E6/E7 DNA target and utilizes human beta globin as an internal control. Cytology and HPV testing are screening assays and should not be used as the sole means of detecting cancer. False-positives and false-negatives can occur. [facility] Conversion Type (Conversion Source) 09/01/2024 09/02/2024 9:40 AM EST us Juhi Pinto CNM CYTOLOGY ORDERABLES Edited Resul t - Final Performing Organization Address [facility] de Phone Number [address] [address] * Hepatitis C antibody, qualitative (08/06/2024 10:42 AM EST) HCV NON-REACTIV E NON-REACTI VE [facility] Blood 08/06/2024 10:4 2 AM EST 08/06/2024 10:53 AM EST us Fozia Boss CNM, MPH LAB BLOOD BKR ORDERABL ES Final Result Performing Organization Address City/[facility] Co de Phone Number [address] [address] * (ABNORMAL) Hemoglobin A1c (08/06/2024 10:42 AM EST) HEMOGLOBIN A1C 8.1(H) 4.3 - 5.8 % [facility] Blood 08/06/2024 10:4 2 AM EST 08/06/2024 10:53 AM EST us Fozia Boss CNM, MPH LAB BLOOD BKR ORDERABL ES Final Result [address] [address] from Last 3 Months or Most Recently Relevant to Health Maintenance Insurance [facility] ACO Advance Directives For more information, please contact: [phone] (9AM - 5PM [facility], Sunday-Sunday) * Full Code (Latest Code Status on File) Date Activated Date Inactivated Comments 05/22/2025 9:41 AM Question Answer Comments Code Status Confirmed With: Patient * Full Code Date Activated Date Inactivated Comments 01/30/2025 2:39 PM 05/22/2025 9:41 AM Question Answer Comments Code Status Confirmed With: Patient Care Teams Business Integration Manager Relationship Specialty Start Date End Date Elham Tidwell MD [address] [place] [address] PCP - General Internal Medicine 10/13/24 Additional Source Comments The information contained in this document represents components of the legal health record. It is not the complete legal health record.[facility]
--- OUTSIDE RECORDS SUMMARY | 2025-08-18 15:32 | XMS_ITS | Encounter Summary ---
Author Organization [facility] Address [address] [address] Phone Care Team Providers Care Engine Setter Name Role Phone Elham Tidwell MD Primary Care Provider Encounter Details Date Type Department Care Team ([facility] st Contact Info) Description 05/22/2025 Procedure Pass OR Admitting Dept - Virtual Department [address] [place] [address] Social History Tobacco Use Types Packs/Day Years [...] on filedocumented in this encounter Care Teams Engine Setter Relationship Specialty Start Date End Date Elham Tidwell MD [facility] [place] [address] PCP - General Internal Medicine 10/13/24 documented as of this encounter Additional Source Comments The information contained in this document represents components of the legal health record. It is not the complete legal health record.[facility]
== END 2025-08-18 11:43 | disposition home or self-care (01) ==
LOC: HO.XRAY 11:42
PROVIDERS: Visit Provider Surgery
DX: E66.01 Morbid (severe) obesity due to excess calories (principal)
CPT/HCPCS: 36415; 71046; 80053; 80061; 82306; 82607; 82728; 82746; 83036; 83525; 83540; 84425; 84443; 84590; 84630; 85025; 86140; 93005

== ENCOUNTER → 2025-08-18 12:04 | Outpatient (BNV) | payer OTHER, SELFPAY | PROVIDERS: Visit Provider Internal Medicine Cardiovascular Disease | DX: E66.01 Morbid (severe) obesity due to excess calories (principal); Z68.41 Body mass index [BMI] 40.0-44.9, adult | CPT/HCPCS: 93010 ==

== ENCOUNTER → 2025-08-18 13:09 | Outpatient (BNV) | payer OTHER, SELFPAY | PROVIDERS: Visit Provider Radiology Diagnostic Radiology | DX: E66.01 Morbid (severe) obesity due to excess calories (principal); Z68.41 Body mass index [BMI] 40.0-44.9, adult | CPT/HCPCS: 71046 ==